=== PATIENT | female | born 1995 | race Caucasian/White ===

== ENCOUNTER 2021-07-28 15:22 | Emergency (ER) | payer OTHER, SELFPAY ==
[2021-07-28 15:32] VITALS: BP 122/85; PULSE 118; RESP 16; TEMP 37.3; O2SAT 99
--- NOTE | 2021-07-28 15:32 | ED.URI ---
HPI - URI/Sore Throat General Chief Complaint: Upper Respiratory Infection Stated Complaint: Sore throat Time Seen by Provider: 07/28/21 15:32 Source: patient and RN notes reviewed History of Present Illness HPI Narrative: Patient is a 25-year-old female who presents the urgent care with complaints of sore throat, fever and body aches since last night. Patient states that she has taken Tylenol for her symptoms. States that she feels like her throat is swollen . Patient has had 1 COVID-vaccine. Patient states that she was exposed to COVID on July 19. Denies of any other upper respiratory complaints. No acute distress noted. Patient aware the plan of care. Some parts of this dictation were generated by voice recognition software and may contain typographical and/or grammatical inaccuracies. Related Data Home Medications Medication Instructions Recorded Confirmed risankizumab-rzaa [Skyrizi] 150 mg SUBCUT ONCE 07/28/21 07/28/21 Allergies Allergy/AdvReac Type Severity Reaction Status Date / Time Latex, Natural Rubber Allergy Itching Verified 07/28/21 15:31 Review of Systems Review of Systems: CONSTITUTIONAL: Reports a fever EYES: Denies visual changes, redness, or discharge. ENT: Denies rhinorrhea, congestion, otalgia. Reports of sore throat CARDIOVASCULAR: Denies chest pain, palpitations, or edema. RESPIRATORY: Denies cough or dyspnea. GASTROINTESTINAL: Denies abdominal pain, nausea, vomiting, or diarrhea. GENITOURINARY: Denies dysuria or hematuria. SKIN: Denies rash or itching. MUSCULOSKELETAL: Denies back pain, joint pain. Reports body aches NEUROLOGIC: Denies headache, numbness, or weakness. All other systems reviewed are negative, except as documented in HPI. PMFSH Comments At the time of my signature, I reviewed and agree with the nursing past medical, surgical, social, and family history. There is no relevant family history pertinent to the patient complaint. Exam Narrative: GENERAL: This is a well-nourished, well-developed patient, in no apparent distress. HEAD: normocephalic, atraumatic. EYES: PERRL. Sclera clear/white. Vision is grossly intact. EARS: External ears normal, auditory canals clear and without drainage, TMs normal without perforation. Hearing grossly intact. NOSE: External nose normal with no obvious nasal discharge, nares without redness, no rhinorrhea. THROAT: Mucous membranes moist, posterior pharynx clear. NECK: Neck supple, non-tender without lymphadenopathy, masses or thyromegaly. CARDIOVASCULAR: Regular rate and rhythm without murmurs, gallops, or rubs. RESPIRATORY: Clear to auscultation. Breath sounds equal bilaterally. No wheezes, rales, or rhonchi. GASTROINTESTINAL: Abdomen soft, non-tender, nondistended. Bowel sounds are active. No hepato-splenomegaly, or palpable masses. No guarding. SKIN: warm, intact with no suspicious lesions or rash, good texture and turgor. NEURO: awake, alert, and oriented to person, place and time. There were no obvious focal neurologic abnormalities. EXTREMITIES: No clubbing, cyanosis, or edema. No joint tenderness, effusion, or edema noted. No calf tenderness. Negative Homans sign bilaterally. BACK: Nontender without deformity or crepitance. No flank tenderness. Course Course Level of Care: Express Care Visit Vital Signs Vital signs: Vital Signs Temperature 99.1 F 07/28/21 15:32 Pulse Rate 118 H 07/28/21 15:32 Respiratory Rate 16 07/28/21 15:32 Blood Pressure 122/85 07/28/21 15:32 Pulse Oximetry 99 07/28/21 15:32 Temperature 99.1 F 07/28/21 15:32 Pulse Rate 118 H 07/28/21 15:32 Respiratory Rate 16 07/28/21 15:32 Blood Pressure 122/85 07/28/21 15:32 Pulse Oximetry 99 07/28/21 15:32 Reviewed MDM - URI/Sore Throat MDM Narrative Medical decision making narrative: Reviewed lab results with the patient. She is aware that her strep swab was negative. Educated patient on culture and we will call within 72 hours of cu
== END 2021-07-28 15:59 | disposition home or self-care (01) ==
PROVIDERS: Emergency Provider Nurse Practitioner Family
DX: J02.9 Acute pharyngitis, unspecified (principal); L40.9 Psoriasis, unspecified
CPT/HCPCS: 87081; 87880; 99213; G0463

== ENCOUNTER 2022-06-07 17:51 | Emergency (ER) | payer OTHER, SELFPAY ==
--- NOTE | ~2022-06-07 | CT_ITS ---
EXAMINATION: CT abdomen pelvis w con INDICATION: Left lower quadrant pain TECHNIQUE: Computed tomographic images of the abdomen and pelvis were obtained after the administrati on of 100 cc of Omnipaque 350 intravenous contrast. The dose-length product (DLP) was 267.23 mGy-cm. Automated exposure control and iterative reconstruction technique were employed. COMPARISON: None available FINDINGS: Minimal dependent atelectasis is present in the lung bases. The heart size is normal. The l iver, spleen, pancreas, gallbladder, and adrenal glands are normal. Hypoattenuating lesions in the ki dneys, measuring up to 4 mm on the right, are too small to characterize but likely represent cysts. N o pathologically enlarged abdominal or pelvic lymph nodes are identified. There is no free intraperit shook gas or evidence of bowel obstruction. There is an enhancing corpus luteum of the left ovary. IMPRESSION: 1. No CT correlate for the patient's symptoms. Reviewed, dictated and finalized at location F. [facility]
[2022-06-07 17:52] VITALS: BP 130/81; PULSE 93; RESP 18; TEMP 36.1; O2SAT 100
[2022-06-07 18:11] LABS: Basophils Percent Auto 0.5 % (0.2-1.2); Eosinophils Percent Auto 0.4 % (0-4.4); Hematocrit 41.8 % (37.0-47.0); Hemoglobin 14.7 g/dL (12.0-15.0); Immature Granulocyte Absolute 0.02 K/mm3 (0.00-0.031); Immature Granulocyte Percent A 0.2 % (0-0.5); Lymphocytes Absolute Auto 2.85 K/mm3 (0.9-3.2); Lymphocytes Percent Auto 33.3 % (18.3-44.2); Mean Corpuscular HGB Conc 35.2 g/dl (32-36); Mean Corpuscular Hemoglobin 35.2 pg (26-34); Mean Platelet Volume 9.6 fl (7.4-10.4); Monocytes Absolute Auto 0.4 K/mm3 (0.1-0.6); Monocytes Percent Auto 4.8 % (2.6-8.5); Neutrophils Absolute Auto 5.2 K/mm3 (1.3-6.7); Neutrophils Percent Auto 60.8 % (45.5-73.1); Platelet Count Result 300 k/mm3 (150-375); Red Blood Count 4.18 M/mm3 (4.2-5.4); White Blood Count 8.6 K/mm3 (4.5-10.0)
[2022-06-07 18:19] LABS: Alanine Aminotransferase 38 U/L (6-35); Albumin Level 4.7 g/dL (3.5-5.1); Alkaline Phosphatase 75 U/L (38-126); Anion Gap 17 mmol/L (8-16); Aspartate Amino Transferase 56 U/L (14-36); Bilirubin,Total 0.6 mg/dL (0.2-1.3); Blood Urea Nitrogen 7 mg/dL (7-17); Calcium 8.8 mg/dL (8.4-10.2); Carbon Dioxide 21 mmol/L (22-30); Chloride 99 mmol/L (98-107); Estimated CRCL calculation 101 ml/min; Estimated Glomerular Filt Rate > 60; Glucose 127 mg/dL (65-110); Lipase 119 U/L (23-300); Potassium 3.5 mmol/L (3.4-5.0); Sodium 137 mmol/L (137-145)
[2022-06-07 18:20] LABS: Appearance Urine Clear (Clear); Bilirubin Urine Negative (Negative); Blood Urine Negative (Negative); Glucose Urine UA Negative (Negative); Ketones Urine Negative (Negative); Leukocyte Esterase Ur Negative LEU/UL (Negative); Nitrate Urine Negative (Negative); Protein Urine Negative (Negative); Urobilinogen Urine 0.2 mg/dL (<2.0)
[2022-06-07 18:25] LABS: Add Urine Microscopic? NO; Color Urine Light Yellow (Yellow)
[2022-06-07 20:45] VITALS: BP 127/90; O2SAT 100
--- NOTE | 2022-06-07 20:54 | ED.ABDPAIN ---
HPI - Abdominal Pain General Chief Complaint: Abdominal Pain Stated Complaint: abd pain Time Seen by Provider: 06/07/22 20:45 History of Present Illness HPI narrative: Patient is a 26-year-old female referred here from urgent care for evaluation of left lower quadrant abdominal pain. Patient states the pain is described as a fullness , and states that she feels swollen in that area. Additionally notes intermittent nausea and vomiting over the past several days. Denies any changes to her stools, fevers. History of appendectomy. Last menstrual cycle was 5 weeks ago. She is sexually active with men and is not on control. No abnormal vaginal discharge. Related Data Home Medications Medication Instructions Recorded Confirmed risankizumab-rzaa 150 mg/mL 150 mg subcut ONCE 07/28/21 07/28/21 subcutaneous pen injector (Skyrizi) Allergies Allergy/AdvReac Type Severity Reaction Status Date / Time Latex, Natural Rubber Allergy Itching Verified 06/07/22 20:45 Review of Systems Review of Systems: Gen: Denies fevers or chills Eyes: Denies eye pain or visual change ENT: Denies congestion Respiratory: Denies shortness of breath or cough CV: Denies chest pain or palpitations GI: Reports abdominal pain, nausea and vomiting. Denies diarrhea denies burning, urgency, frequency or hematuria Musculoskeletal: Denies back pain or muscle pain Neuro: Denies numbness, tingling, weakness or focal weakness Skin: Denies rash Except as documented, all other systems reviewed and negative Exam Narrative: APPEARANCE: Well appearing, no pain in distress, well-nourished. Head: Normocephalic and atraumatic. EYES: PERRLA/EOMI, conjunctivae clear NOSE: No nasal drainage EARS: External ear normal in appearance THROAT: Oropharynx is clear. Mucous membranes are moist. NECK: Supple. No adenopathy, no masses. RESPIRATORY: Airway patent, respirations nonlabored. Clear to auscultation bilaterally, no rales, rhonchi, wheezing. CARDIOVASCULAR: Regular rate and rhythm without murmurs, rubs, or gallops. ABDOMINAL: Tender to palpation in the left groin. No fullness detected. Normoactive bowel sounds. Soft, nondistended. No rebound tenderness or guarding. MUSCULOSKELETAL: Extremities are warm and well-perfused. Moves all extremities well. No edema. NEURO: Normal speech. No focal neurologic deficits. SKIN: Skin is warm and dry. No rashes. PSYCHIATRIC: Normal affect/mood.. Course Vital Signs Vital signs: Vital Signs Temperature 97.0 F L 06/07/22 17:52 Pulse Rate 93 06/07/22 17:52 Respiratory Rate 18 06/07/22 17:52 Blood Pressure 130/81 06/07/22 17:52 Pulse Oximetry 100 06/07/22 17:52 Oxygen Delivery Room Air 06/07/22 17:52 Temperature 97.0 F L 06/07/22 17:52 Pulse Rate 81 06/07/22 22:42 Respiratory Rate 18 06/07/22 22:42 Blood Pressure 154/89 H 06/07/22 22:42 Pulse Oximetry 100 06/07/22 22:42 Oxygen Delivery Room Air 06/07/22 17:52 MDM - Abdominal Pain MDM Narrative Medical decision making narrative: 26-year-old female here for evaluation of left lower quadrant abdominal pain and fullness . Her vital signs are normal and she is slightly tender in that region. No fullness or hernia palpated. Patient's basic labs are unremarkable, she does have an anion gap of 17 and bicarb of 21, but her glucose is normal and she has no ketones in the urine suggest DKA. Her lactic is negative. Likely mild starvation ketosis, she was given fluids and Toradol in the ED with improvement and resolution of her symptoms. Her CT abdomen pelvis is unremarkable. Unclear etiology of patient's symptoms, but she will be discharged home to follow-up with primary care provider and given return precautions. Lab Data Result diagrams: 06/07/22 18:01 06/07/22 18:01 Labs: Lab Results 06/07/22 06/07/22 06/07/22 Range/Units 18:01 18:01 18:08 WBC 8.6 (4.5-10.0) K/mm3 RBC 4.18 L (4.2
--- NOTE | 2022-06-07 21:17 | PC.NURSE ---
Pt in CT
[2022-06-07 21:24] VITALS: BP 120/103; RESP 16; O2SAT 100
[2022-06-07] MEDS: ONDANSETRON INJ 4 MG/2 ML VIAL IV PUSH (21:25)
[2022-06-07] MEDS: SODIUM CHLORIDE 0.9% IV 1,000 ML 999 ML IV CONT (21:25)
[2022-06-07 21:27] LABS: Lactic Acid Reflex 0.9 mmol/L (0.7-2.0)
[2022-06-07 21:31] VITALS: BP 126/93; O2SAT 100
[2022-06-07 21:46] VITALS: BP 125/90; RESP 18; O2SAT 99
[2022-06-07] MEDS: KETOROLAC 15 MG/ML VIAL (*BKC) IV PUSH (21:55)
[2022-06-07 22:42] VITALS: BP 154/89; PULSE 81; RESP 18; O2SAT 100
== END 2022-06-07 22:44 | disposition home or self-care (01) ==
PROVIDERS: Emergency Medicine; Physician Assistant; Emergency Provider Emergency Medicine
DX: R10.32 Left lower quadrant pain (principal)
CPT/HCPCS: 36415; 74177; 80053; 81003; 81025; 83605; 83690; 85025; 96361; 96374; 96375; 99284; J1885; J2405; J7030; Q9967

== ENCOUNTER 2023-01-26 11:29 | Observation (INO) | payer OTHER, SELFPAY ==
[2023-01-26 11:51] VITALS: BP 122/79; PULSE 105
[2023-01-26 12:01] VITALS: BP 126/71; PULSE 97
[2023-01-26 12:16] VITALS: BP 116/76; PULSE 97
[2023-01-26 12:31] VITALS: BP 125/71; PULSE 88
[2023-01-26 12:46] VITALS: BP 128/76; PULSE 93
[2023-01-26 13:10] VITALS: BMI 33.5
--- NOTE | 2023-01-26 13:11 | LDADM ---
This patient, Aby Guerrero, was admitted to Labor/Delivery/Recovery 104 on 01/26/23 at 11:29. Plans for labor, pain management and were discussed with patient. Patient/family oriented to hospital policies and general routines including ID bracelet, bed and alarms, visiting hours, pain management, procedures, bathroom and other care routines, personal items, smoking policy, room service/diet and guest tray routines, security routines, and visiting hours. Patient/Family are encouraged to report perceived risks to care and to ask questions if they do not understand what they are told or what they should do. See OBIX for further documentation.
--- NOTE | 2023-01-26 13:22 | PC.NURSE ---
Patient admitted for observation with complaints of leaking fluid and contractions. ROM+ negative. heart tones are reassuring (Category I) and patient had occasional contractions. Patient's cervical exam was 1.5/50/-2 (same as cervical exam in office on 01/24/23). Patient made no cervical change during visit and verbal orders were received by MD for discharge. Patient agrees with plan of care and has no questions at this time.
--- NOTE | 2023-02-18 23:15 | PM.OBTRLD ---
OB - Triage/Final Diagnosis Visit Information Comments/Additional reasons for admission: I have assessed the risk for this patient, Aby Guerrero, and determined that she would benefit from observation care. Final Diagnosis (1) Amniotic fluid leaking: Code(s): O42.90 - Premature rupture of membranes, unspecified as to length of time between rupture and onset of labor, unspecified weeks of gestation Status: Acute
== END 2023-01-26 13:21 | disposition home or self-care (01) ==
PROVIDERS: Admitting Provider Obstetrics & Gynecology; Visit Provider Obstetrics & Gynecology
DX: O42.913 Preterm premature rupture of membranes, unspecified as to length of time between rupture and onset of labor, third trimester (principal); Z3A.36 36 weeks gestation of pregnancy
CPT/HCPCS: 84112; G0378; G0379

== ENCOUNTER 2023-01-31 16:16 | Outpatient (RCR) | payer OTHER, SELFPAY ==
[2023-01-17 15:30] VITALS: BP 130/86; PULSE 104
[2023-01-17 16:36] VITALS: BP 130/86; PULSE 89
[2023-01-31 16:41] VITALS: PULSE 100
== END 2023-03-05 12:46 | disposition home or self-care (01) ==
LOC: ANHOBOP 16:16
PROVIDERS: Visit Provider Obstetrics & Gynecology
DX: O24.419 Gestational diabetes mellitus in pregnancy, unspecified control (principal); O36.8330 Maternal care for abnormalities of the fetal heart rate or rhythm, third trimester, not applicable or unspecified; Z3A.34 34 weeks gestation of pregnancy
CPT/HCPCS: 59025

== ENCOUNTER 2023-02-16 04:59 | Inpatient (IN) | payer OTHER, SELFPAY ==
[2023-02-16] VITALS (113 sets, daily range): BP systolic 86–174; BP diastolic 50–145; PULSE 46–156; RESP 16–18; TEMP 36.5–36.8; O2SAT 93–100; BMI 34.9
--- NOTE | 2023-02-16 05:22 | LDADM ---
This patient, Aby Guerrero, was admitted to Labor/Delivery/Recovery 107 on 02/16/23 at 04:59. Plans for labor, pain management and were discussed with patient. Patient/family oriented to hospital policies and general routines including ID bracelet, bed and alarms, visiting hours, pain management, procedures, bathroom and other care routines, personal items, smoking policy, room service/diet and guest tray routines, security routines, and visiting hours. Patient/Family are encouraged to report perceived risks to care and to ask questions if they do not understand what they are told or what they should do. See OBIX for further documentation.
[2023-02-16 05:48] LABS: Basophils Percent Auto 0.2 % (0.2-1.2); Eosinophils Absolute Auto 0.1 K/mm3 (0-0.3); Eosinophils Percent Auto 1.4 % (0-4.4); Hematocrit 32.2 % (37.0-47.0); Hemoglobin 10.2 g/dL (12.0-15.0); Immature Granulocyte Absolute 0.03 K/mm3 (0.00-0.031); Immature Granulocyte Percent A 0.4 % (0-0.5); Lymphocytes Absolute Auto 2.34 K/mm3 (0.9-3.2); Lymphocytes Percent Auto 29.1 % (18.3-44.2); Mean Corpuscular HGB Conc 31.7 g/dl (32-36); Mean Corpuscular Hemoglobin 29.9 pg (26-34); Mean Corpuscular Volume 94.4 fl (80-100); Monocytes Absolute Auto 0.6 K/mm3 (0.1-0.6); Monocytes Percent Auto 7.1 % (2.6-8.5); Neutrophils Percent Auto 61.8 % (45.5-73.1); Platelet Count Result 320 k/mm3 (150-375); Red Blood Count 3.41 M/mm3 (4.2-5.4); Red Cell Distribution Width 13.3 % (11.5-14.5)
[2023-02-16] MEDS: OXYTOCIN 30 UNITS/NS 500 ML 30 UNITS/500 ML BAG 6 UNITS IV CONT (05:48)
[2023-02-16] MEDS: LACTATED RINGERS 1,000 ML 125 ML IV CONT ×2 (05:48→08:56)
[2023-02-16 06:05] LABS: Amphetamine Screen Urine Negative (Negative); Barbiturate Screen Urine Negative (Negative); Benzodiazepines Screen Urine Negative (Negative); Cannabinoid Screen Urine Negative (Negative); Cocaine Screen Urine Negative (Negative); Methadone Screen Urine Negative (Negative); Opiate Screen Urine Negative (Negative); Phencyclidine Screen Urine Negative (Negative)
--- NOTE | 2023-02-16 06:22 | WPDANESEPPF ---
Anes - Initial Pre Proc Eval Procedure: Labor epidural Date/Time: 02/16/23 06:22 Surgeon: Twin Guzmán MD Pre Op Diagnosis: Labor pain Pre Op Diagnosis: Induction of Labor Patient Data Age: 27 Gender: F Height: 1.6 m Weight: 89.54 kg Last Vital Signs Pulse 87 02/16/23 05:20 BP 118/73 02/16/23 05:20 O2 Del Method Room Air 02/16/23 05:21 Allergies Allergy/AdvReac Type Severity Reaction Status Date / Time Latex, Natural Rubber Allergy Itching Verified 02/10/23 13:38 Home Medications Medication Instructions Recorded Confirmed Type blood sugar diagnostic (OneTouch 01/26/23 01/26/23 History Ultra Test strips) blood-glucose meter (OneTouch 01/26/23 01/26/23 History Ultra2 Meter) lancets 33 gauge (OneTouch Delica 01/26/23 01/26/23 History Plus Lancet) prenat.vits,sangita,nes-ssrr-frnbm 1 tablet 02/10/23 History Laboratory Tests 02/16/23 05:41 WBC 8.0 K/mm3 (4.5-10.0) RBC 3.41 L M/mm3 (4.2-5.4) Hgb 10.2 L D g/dL (12.0-15.0) Hct 32.2 L % (37.0-47.0) MCV 94.4 fl (80-100) MCH 29.9 pg (26-34) MCHC 31.7 L g/dl (32-36) RDW 13.3 % (11.5-14.5) Plt Count 320 k/mm3 (150-375) MPV 10.0 fl (7.4-10.4) Immature Gran % (Auto) 0.4 % (0-0.5) Neut % (Auto) 61.8 % (45.5-73.1) Lymph % (Auto) 29.1 % (18.3-44.2) Tripp % (Auto) 7.1 % (2.6-8.5) Eos % (Auto) 1.4 % (0-4.4) Baso % (Auto) 0.2 % (0.2-1.2) Lymph # (Auto) 2.34 K/mm3 (0.9-3.2) Tripp # (Auto) 0.6 K/mm3 (0.1-0.6) Eos # (Auto) 0.1 K/mm3 (0-0.3) Baso # (Auto) 0.0 K/mm3 (0.0-0.1) Abs Immat Gran (auto) 0.03 K/mm3 (0.00-0.031) Absolute Neuts (auto) 5.0 K/mm3 (1.3-6.7) Absolute Nucleated RBC 0.0 K/mm3 (0.0-0.012) Nucleated RBC % 0.0 % (0.0-0.2) Urine Opiates Screen Negative (Negative) Urine Methadone Screen Negative (Negative) Ur Barbiturates Screen Negative (Negative) Ur Phencyclidine Scrn Negative (Negative) Ur Amphetamine Screen Negative (Negative) U Benzodiazepines Scrn Negative (Negative) Urine Cocaine Screen Negative (Negative) U Cannabinoids Screen Negative (Negative) RPR Pending Patient hx anesthesia problems: none Family hx anesthesia problems: none Results Review: All pre-operative results and documents have been reviewed as part of the pre-operative evaluation. [facility] Family History Family History Mother Cervical cancer Grandparent Diabetes mellitus Social History Social History Smoking status: Former smoker Tobacco type: cigarettes Substance use: never Lack of Transportation: No Lack of Food: Never True Current Housing: I Have Housing Concerned About Future Housing: No Difficulty Paying Gas/Electric Bills: No Difficulty Paying for Meds: No Currently Unemployed: No Education: High School Diploma/GED Difficulty w/ Childcare or Family Care: No Spiritual care concerns: No Anes - Eval Final PreProcedure Day of Procedure 02/16/23 06:22 ASA classification: II Results Review: All pre-operative results and documents have been reviewed as part of the pre-operative evaluation. Informed Consent: The patient's anesthetic plan and its attendant risks and benefits were discussed with the patient/family/POA. Questions were solicited and answers provided to the satisfaction of the patient/family/POA.
[2023-02-16 06:55] LABS: Glucose Point of Care 80 mg/dl (65-105)
--- NOTE | 2023-02-16 07:54 | WPDHPUPDATE1 ---
History and Physical Update Update Date/Time: 02/16/23 07:54 27-year-old 1 at term who presents for elective induction. She is 3 cm, 50%, -2 reassuring heart tones. Ruptured membranes artificially with clear fluid. Proceed with Pitocin and expectant management. History and Physical has been reviewed, including an updated exam of the patient. There are NO changes in the patient's condition. Risks, benefits, and alternatives have been discussed and questions answered. Patient agrees to proceed with procedure.
[2023-02-16 09:59] LABS: Glucose Point of Care 88 mg/dl (65-105)
[2023-02-16 12:19] LABS: Glucose Point of Care 85 mg/dl (65-105)
--- NOTE | 2023-02-16 13:10 | PM.OBPRVD ---
OB - Delivery Note Procedure Delivery date: 02/16/23 Procedure: Induction method: AROM and Per Pitocin Protocol Delivery monitor: External FHT and Internal Uterine Route of delivery: Laceration Description: Periurethral Delivery repair: vicryl Quantitative Blood Loss (ml): 225 [place] Baby Date of : 02/16/23 Time of : 12:58 Weeks of gestation at delivery: 39 presentation: vertex Placenta delivery description: Spontaneous score one minute: 9 score five minutes: 9
[2023-02-16] MEDS: miSOPROStol 200 MCG TABLET 1000 MCG RECTAL (13:17)
[2023-02-16] MEDS: OXYTOCIN 30 UNITS/NS 500 ML 30 UNITS/500 ML BAG 125 UNITS IV CONT (13:32)
--- NOTE | 2023-02-16 14:27 | PC.NURSE ---
[id number] Introductions were made. Mother works well with her infant and is demonstrating [id number]. Encouraged understanding of the benefits of skin to skin (demonstrating unwrapping and placing upright on her chest), stimulating with massage touch, changing positions to encourage wakefulness, how to watch for early feeding cues and responsive feeding. With mother in a laid-back position infant was allowed time to explore mothers chest making crawling efforts to the breast. Mother was educated on the art of hand expression to encourage milk production and to finger feed drops to her when able to express colostrum. It was demonstrated how supporting the breast to facilitate a deep latch, asymmetrical latch (off-center), leading with the chin with a big, open, wide gape and body close to mother. After some time infant was repositioned, then latched optimally to the left breast in football position. Education given to mother of how to visualize suck/swallow and effective with good rocking jaw motion. was able to maintain latch without discomfort to mother for 3-5 minutes. Nipple care reviewed with optimal latch and good positioning. Reviewed good handwashing when or touching the breast/nipples to prevent infection. Resource of the [employer] was given to mother. Mother voiced understanding of skin to skin, stimulating with massage touch, responsive feedings, hand expressed colostrum, talking to infant to encourage , to call if infant does not latch, or if there is discomfort with . Parents voiced understanding of information, demonstrated learning and will call if there is a request for assistance. Reported to the Nursery RN.
--- NOTE | 2023-02-16 15:45 | OBPPTRN ---
Patient transferred to post room #283 via wheelchair. Support person present. Oriented to unit, room, information board, rooming in, admission packet and security measures. Patient verbalizes understanding.
[2023-02-16 17:06] LABS: Rapid Plasma Reagin Non-Reactive (NonReactive)
[2023-02-16] MEDS: ACETAMINOPHEN 325 MG TABLET 650 MG PO (17:56)
[2023-02-17 04:00] VITALS: BP 110/75; PULSE 89; RESP 18; TEMP 36.5; O2SAT 100
[2023-02-17] MEDS: ACETAMINOPHEN 325 MG TABLET 650 MG PO ×3 (04:31→17:16)
[2023-02-17 05:06] LABS: Hematocrit 30.1 % (37.0-47.0); Hemoglobin 9.7 g/dL (12.0-15.0)
--- NOTE | 2023-02-17 07:52 | WPDANLDPN2 ---
Anes-Prog Note L&D Date/Time: 02/17/23 07:52 Comfortable throughout: labor and delivery Neuraxial method: epidural Epidural/Spinal procedure site: clean & non-tender Neuro status: Neuro function grossly intact. Cardiovascular status: normal Respiratory status: normal Airway patency: baseline Mental status: baseline Post-Op hydration status: normal Vital Signs: Last Vital Signs Temp 97.7 F 02/17/23 04:00 Pulse 89 02/17/23 04:00 Resp 18 02/17/23 04:00 BP 110/75 02/17/23 04:00 Pulse Ox 100 02/17/23 04:00 O2 Del Method Room Air 02/16/23 15:45 Pain score (VAS): 0 I/O: Intake & Output 02/16/23 02/16/23 02/17/23 15:59 23:59 07:59 Intake Total 1000 240 Output Total 425 Balance 575 240 Post-procedural complaints: none Patient feedback: Patient satisfied with anesthetic care.
--- NOTE | 2023-02-17 08:18 | PM.OBPNVD ---
OB - PN: Subj Subjective Date/time seen: 02/17/23 08:18 Patient comments: no complaints, pain well controlled, incisional pain, tolerating diet and flatus present OB - PN: Obj Data Labs 02/17/23 04:26 Labs: Laboratory Results - last 24 hr 02/16/23 02/16/23 02/16/23 05:41 09:55 12:15 Hgb Hct POC Capillary Glucose 88 85 RPR Non-reactive Blood Type A Positive Antibody Screen Negative 02/17/23 04:26 Hgb 9.7 L Hct 30.1 L POC Capillary Glucose RPR Blood Type Antibody Screen OB - PN A/P Plan day: 1 Plan: routine care Comments: No problems, routine care Time Spent With Patient Time: Total time spent is greater than 50% in coordination of care (as documented) at patient's floor/unit and/or counseling patient: Exam Const: General: comfortable, no acute distress and alert Resp: Effort & Inspection: normal respiratory effort Auscultation: no crackles, no rales and no rhonchi Cardio: Rate: regular rate Heart sounds: no click, no murmurs and no rubs GI: Inspection: non-distended GI Palp: No Tenderness to palpation present (GI) Auscultation: normal bowel sounds Other: Incision - CDI Extrem: General: normal to inspection, no pedal edema and no calf tenderness
--- NOTE | 2023-02-17 08:19 | PM.OBDSVD ---
DS: Admitting Diagnosis Discharge Date February 17, 2023 Admitting Diagnosis term DS: Discharge Diagnosis Discharge Diagnosis (1) Term delivered: Code(s): O80 - Encounter for full-term uncomplicated delivery Status: Acute OB - DS: Summary OB Procedures : None OB Procedures Intrapartum: Spontaneous Vag Delivery OB Procedures: : None Time Spent with Patient Time attestation: Total time spent providing and/or coordinating discharge services: Exam Const: General: comfortable, no acute distress and alert Resp: Effort & Inspection: normal respiratory effort Auscultation: no crackles, no rales and no rhonchi Cardio: Rate: regular rate Heart sounds: no click, no murmurs and no rubs GI: Inspection: non-distended GI Palp: No Tenderness to palpation present (GI) Auscultation: normal bowel sounds Other: Incision - CDI Extrem: General: normal to inspection, no pedal edema and no calf tenderness DS: Data Data Completed and Pending Labs on day of discharge: Labs from last 24 hours 02/17/23 02/16/23 02/16/23 04:26 12:15 09:55 Hgb 9.7 L Hct 30.1 L POC Capillary Glucose 85 88 RPR Blood Type Antibody Screen 02/16/23 05:41 Hgb Hct POC Capillary Glucose RPR Non-reactive Blood Type A Positive Antibody Screen Negative Discharge Plan Discharge Discharging Clinician: Twin Guzmán Patient Disposition: Home, Self-Care Activity: pelvic rest Diet: regular Patient Instructions: Antibiotic Form Stand Alone Forms: General Discharge Information Follow-up/Referrals: Twin Guzmán MD [Physician] - Discharge Medications: Continued (DME) blood-glucose meter [OneTouch Ultra2 Meter] Misc MISCELLANEOUS (DME) OneTouch Ultra Test Strip MISCELLANEOUS (DME) lancets [OneTouch Delica Plus Lancet] 33 gauge misc MISCELLANEOUS #2 Tablet 1 tablet Date of admission: 02/16/23 04:59 Primary Care Provider: PHYSICIAN,GENERAL INTERNIST AND PHYSICIAN LEADER Admitting Provider: Twin Guzmán Attending physician on admission: Twin Guzmán Condition: Stable
[2023-02-17 09:00] VITALS: BP 106/79; PULSE 71; RESP 16; TEMP 36.9; O2SAT 98
[2023-02-17] MEDS: DOCUSATE SODIUM 100 MG CAPSULE PO ×2 (09:00→17:16)
[2023-02-17] MEDS: MULTIVIT/MIN/PREN/FOL AC/IRON TABLET 1 TAB PO (09:00)
[2023-02-17] MEDS: POLYSACCHARIDE IRON COMPLEX 150 MG CAPSULE PO ×2 (09:00→17:16)
[2023-02-17 20:00] VITALS: BP 97/64; PULSE 90; RESP 18; TEMP 36.8; O2SAT 98
[2023-02-18] MEDS: BENZOCAINE 20% AER SPR (*SP) 56 GM CAN 1 SPRAY TOPICAL (08:15)
[2023-02-18] MEDS: MULTIVIT/MIN/PREN/FOL AC/IRON TABLET 1 TAB PO (08:15)
[2023-02-18] MEDS: POLYSACCHARIDE IRON COMPLEX 150 MG CAPSULE PO (08:15)
[2023-02-18] MEDS: DOCUSATE SODIUM 100 MG CAPSULE PO (08:15)
[2023-02-18] MEDS: WITCH HAZEL 40 PADS 1 PAD TOPICAL (08:15)
[2023-02-19 09:15] VITALS: BP 114/71; PULSE 98; RESP 18; TEMP 36.9; O2SAT 100
== END 2023-02-18 11:30 | disposition home or self-care (01) | DRG 807 ==
LOC: ANHLDR 05:02 → ANHOB2 15:53
PROVIDERS: Admitting Provider Obstetrics & Gynecology; Visit Provider Obstetrics & Gynecology
DX: O24.429 Gestational diabetes mellitus in childbirth, unspecified control (principal); Z37.0 Single live birth; O71.82 Other specified trauma to perineum and vulva; Z3A.39 39 weeks gestation of pregnancy
CPT/HCPCS: 36415; 80307; 82948; 85014; 85018; 85025; 86592; 86850; 86900; 86901; A9270; J2590; J2795; J7120

== ENCOUNTER 2023-12-28 00:01 | Emergency (ER) | payer OTHER, SELFPAY ==
--- NOTE | ~2023-12-28 | CT_ITS ---
CT of the Abdomen and Pelvis: Indication: Abdominal pain Technique: 2.5 mm axial scans were obtained through the abdomen and pelvis following intravenous adm inistration of 100 cc of Omnipaque 350. Dose reduction technique was used on this scan by utilizing a utomated exposure control and iterative reconstruction technique. The dose-length product (DLP) was 6 85.80 mGy-cm. COMPARISON: 06/07/2022 Findings: Scans through the lung bases are unremarkable. The liver, spleen, pancreas, gallbladder, adrenals and kidneys are within normal limits. No evidence of aortic aneurysm. No lymphadenopathy. No bowel obstruction or bowel wall thickening. There is no evidence to suggest acute appendicitis. Images through the pelvis were performed. Urinary bladder unremarkable. 3.3 cm exophytic right-sided fibroid versus right ovarian mass present. No ascites. Impression: 3.3 cm exophytic right-sided fibroid versus right ovarian mass. Pelvic ultrasound should be considere d to further evaluate. Reviewed, dictated and finalized at [facility]. Impression: 3.3 cm exophytic right-sided fibroid versus right ovarian mass. Pelvic ultrasou nd should be considered to further evaluate.
[2023-12-28 00:08] VITALS: BP 146/98; PULSE 103; RESP 20; TEMP 36.4; O2SAT 100
[2023-12-28 01:01] VITALS: BP 121/86; PULSE 85; RESP 18; TEMP 36.4; O2SAT 99
[2023-12-28] MEDS: SODIUM CHLORIDE 0.9% IV 1,000 ML 999 ML IV CONT (01:17)
[2023-12-28] MEDS: ONDANSETRON INJ 4 MG/2 ML VIAL IV PUSH (01:17)
[2023-12-28 01:33] LABS: Basophils Percent Auto 0.5 % (0.2-1.2); Eosinophils Absolute Auto 0.1 K/mm3 (0-0.3); Eosinophils Percent Auto 1.8 % (0-4.4); Hematocrit 37.8 % (37.0-47.0); Hemoglobin 12.4 g/dL (12.0-15.0); Immature Granulocyte Absolute 0.01 K/mm3 (0.00-0.031); Immature Granulocyte Percent A 0.2 % (0-0.5); Lymphocytes Absolute Auto 3.17 K/mm3 (0.9-3.2); Mean Corpuscular HGB Conc 32.8 g/dl (32-36); Mean Corpuscular Hemoglobin 33.3 pg (26-34); Mean Corpuscular Volume 101.6 fl (80-100); Mean Platelet Volume 10.4 fl (7.4-10.4); Monocytes Absolute Auto 0.4 K/mm3 (0.1-0.6); Monocytes Percent Auto 6.4 % (2.6-8.5); Neutrophils Absolute Auto 2.5 K/mm3 (1.3-6.7); Neutrophils Percent Auto 40.1 % (45.5-73.1); Platelet Count Result 272 k/mm3 (150-375); Red Blood Count 3.72 M/mm3 (4.2-5.4); Red Cell Distribution Width 13.7 % (11.5-14.5); White Blood Count 6.2 K/mm3 (4.5-10.0)
[2023-12-28 01:42] LABS: Lipase 130 U/L (23-300)
[2023-12-28 01:42] LABS: Influenza A QL RT-PCR Negative (Negative); Influenza B QL RT-PCR Negative (Negative); RSV RNA, RT-PCR Negative (Negative); SARS-CoV-2 RNA PCR Negative (Negative)
[2023-12-28 01:53] LABS: Appearance Urine Cloudy (Clear); Bacteria Urine 2+ /hpf; Bilirubin Urine Negative (Negative); Blood Urine Negative (Negative); Color Urine Yellow (Yellow); Glucose Urine UA Negative (Negative); Ketones Urine Negative (Negative); Leukocyte Esterase Ur 2+ LEU/UL (Negative); Nitrate Urine Negative (Negative); Non Pathogenic Casts 0-2; Protein Urine Negative (Negative); RBC Urine 0-2 /hpf (0-2); Specific Grav Ur 1.013 (1.001-1.035); Squamous Epithelial Cell Urine Moderate /hpf (Few); WBC Urine 21-50 /hpf (0-3); pH Urine 6.5 (5.0-9.0)
[2023-12-28 01:55] LABS: Alanine Aminotransferase 42 U/L (6-35); Albumin Level 3.9 g/dL (3.5-5.1); Alkaline Phosphatase 58 U/L (38-126); Anion Gap 5 mmol/L (4-12); Aspartate Amino Transferase 61 U/L (14-36); Bilirubin,Total 0.4 mg/dL (0.2-1.3); Blood Urea Nitrogen 8 mg/dL (7-17); Calcium 8.9 mg/dL (8.4-10.2); Carbon Dioxide 27 mmol/L (22-30); Chloride 105 mmol/L (98-107); Estimated CRCL calculation 125 ml/min; Estimated Glomerular Filt Rate > 60; Glucose 101 mg/dL (65-110); Magnesium 1.9 mg/dL (1.6-2.3); Potassium 3.5 mmol/L (3.4-5.0); Sodium 137 mmol/L (137-145)
[2023-12-28 01:55] LABS: Add Urine Microscopic? YES
[2023-12-28 02:15] LABS: SPREG INTERNAL CONTROL Positive; Serum Qual hCG Negative
--- NOTE | 2023-12-28 02:39 | ED.ABDPAIN ---
HPI - Abdominal Pain General Chief Complaint: Abdominal Pain Stated Complaint: abd pain Time Seen by Provider: 12/28/23 01:30 History of Present Illness HPI narrative: Patient is a 28-year-old female who presents the emergency department this evening complaining of right upper quadrant abdominal pain. Patient states that she has been having this pain on and off for the past few weeks and states that sometimes it is associated with food and sometimes it appears out of nowhere. Patient also states that she gave approximately 3 weeks ago and that all the women in her family 10 to have gallbladder issues after having a baby. Patient also states that she has been having some nausea, vomiting and diarrhea for the past 5 days. Denies any chest pain or shortness of breath, any fevers or chills at home. No additional symptoms or concerns at this time. Related Data Home Medications Medication Instructions Recorded Confirmed blood sugar diagnostic ([facility] 01/26[facility] 01/26/23 Ultra Test strips) blood-glucose meter ([facility] 01/26/23 01/26/23 Ultra2 Meter) lancets 33 gauge ([employer] 01/26/23 01/26/23 Plus Lancet) prenat.vits,sangita,bzo-qwcy-mooad 1 tablet 02/10/23 Allergies Allergy/AdvReac Type Severity Reaction Status Date / Time Latex, Natural Rubber Allergy Itching Verified 02/10/23 13:38 Review of Systems Review of Systems: All systems are reviewed and are negative unless stated otherwise in the HPI. [facility] Family History Family History Mother Cervical cancer Grandparent Diabetes mellitus Social History Social History Smoking status: Former smoker Tobacco type: cigarettes Substance use: never Lack of Transportation: No Lack of Food: Never True Current Housing: I Have Housing Concerned About Future Housing: No Difficulty Paying Gas/Electric Bills: No Difficulty Paying for Meds: No Currently Unemployed: No Education: High School Diploma/GED Difficulty w/ Childcare or Family Care: No Spiritual care concerns: No Exam Narrative: General: Alert, awake, afebrile, in no acute distress. HEENT: PERRL, no rhinorrhea, no post nasal drip, oropharynx clear. Cardiovascular: Regular rate and rhythm, no murmurs, rubs or gallops, no peripheral edema. Respiratory: Clear to auscultation bilaterally, no tachypnea, no wheezing, no rhonchi, no rubs, no respiratory distress. Abdomen: Soft, nontender, nondistended, no rebound, no guarding, no peritoneal signs. Musculoskeletal: No joint swelling or deformity, normal muscle tone. Skin: No rashes or petechia, no signs of infection. Neurological: Alert and oriented to person, place, and time. Follows all commands. No focal deficits, speech is clear and fluent. Course Vital Signs Vital signs: Vital Signs Temperature 97.5 F L 12/28/23 00:08 Pulse Rate 103 H 12/28/23 00:08 Respiratory Rate 20 12/28/23 00:08 Blood Pressure 146/98 H 12/28/23 00:08 Pulse Oximetry 100 12/28/23 00:08 Oxygen Delivery Room Air 12/28/23 00:08 Temperature 97.6 F 12/28/23 01:01 Pulse Rate 82 12/28/23 05:38 Respiratory Rate 17 12/28/23 05:38 Blood Pressure 126/84 12/28/23 05:38 Pulse Oximetry 97 12/28/23 05:38 Oxygen Delivery Room Air 12/28/23 00:08 MDM - Abdominal Pain MDM Narrative Medical decision making narrative: The patient was evaluated by myself in the emergency department. History is obtained from patient who is an independent historian and physical exam was performed. External medical records were reviewed at this time. IV was established and pertinent tests were ordered. Patient was administered a 1 L IV fluid bolus with normal saline and 4 mg IV Zofran for nausea. Laboratory results obtained revealing mild transaminitis with an AST of 61 and an ALT of 42. Imaging studies obtaine
[2023-12-28 04:14] VITALS: BP 124/80; PULSE 82; RESP 20; O2SAT 97
[2023-12-28 05:38] VITALS: BP 126/84; PULSE 82; RESP 17; O2SAT 97
== END 2023-12-28 06:10 | disposition home or self-care (01) ==
PROVIDERS: Emergency Provider Emergency Medicine
DX: N39.0 Urinary tract infection, site not specified (principal); N83.8 Other noninflammatory disorders of ovary, fallopian tube and broad ligament; R10.11 Right upper quadrant pain; R19.7 Diarrhea, unspecified; Z87.891 Personal history of nicotine dependence; Z20.822 Contact with and (suspected) exposure to COVID-19
CPT/HCPCS: 36415; 74177; 80053; 81001; 81025; 82248; 83690; 83735; 84703; 85025; 87086; 87088; 87637; 96361; 96374; 99284; J2405; J7030; Q9967

== ENCOUNTER 2025-04-15 15:05 | Emergency (ER) | payer OTHER, SELFPAY ==
--- NOTE | ~2025-04-15 | US_ITS ---
EXAMINATION: US OB <=14 wk fetus w TV DATE: 04/15/2025 17:35 INDICATION: Vaginal bleeding. Last menstrual period 02/23/2025 TECHNIQUE: Real-time transabdominal and transvaginal obstetric ultrasound. FINDINGS: No prior studies for comparison. The uterus measures 8.4 x 3.9 x 4.6 cm. No intrauterine is identified. Endometrium measures 5 mm. Myometrium is unremarkable without abnormal mass. There is a complicated cyst with echogenic internal component. This cyst measures 3.7 x 3.7 x 3.5 cm. The left ovary is normal measuring 2.8 x 2 x 1.5 cm. IMPRESSION: 1. No intrauterine identified. Findings are nonspecific in the setting of early and may represent of unknown location. Correlation with follow-up quantitative beta-hCG levels and imaging recommended. 2: Complicated right ovarian cyst measuring 3.7 cm with internal soft tissue component which lacks vascularity. This may represent a hemorrhagic ovarian cyst or resolving corpus luteal cyst. Reviewed, dictated and finalized at location O. IMPRESSION: 1. No intrauterine identified. Findings are nonspecific in the settin g of early and may represent of unknown location. Correlati on with follow-up quantitative beta-hCG levels and imaging recommended. 2: Complicated right ovarian cyst measuring 3.7 cm with internal soft tissue co mponent which lacks vascularity. This may represent a hemorrhagic ovarian cyst or resolving corpus luteal cyst.
[2025-04-15 15:08] VITALS: BP 123/80; PULSE 99; RESP 16; TEMP 36.4; O2SAT 96
--- OUTSIDE RECORDS SUMMARY | 2025-04-15 15:08 | XMS_ITS | Clinical Summary ---
Author Organization [facility] Re[employer] [place] [place] Address [address] [address] Care Team Providers Care Superintendent Laundry Name Role Phone Noris Diaz MD Primary Care Provider Allergies Active Allergy Reactions Criticality Noted Date Comments Amoxicillin Rash Low 03/16/2025 Latex Rash Low 12/14/2019 Medications Ethinyl Estradiol-Nore lgestrom (Xulane) 150-35 mcg/24 hr Patch Weekly PATCH Apply 1 Patch to skin as directed see administration instructions. Active azithromycin (Zithromax Z-Petr) 250 mg tablet Take two pills on day 1, then one pill daily until gone. 6 Tablet 03/16/20 25 Active cetirizine (ZyrTEC) 10 mg tabletIndicati ons:Rash Take 1 Tablet (10 mg) by mouth daily. 90 Tablet 1 03/18/20 25 Active predniSONE (DELTASONE) 20 mg tabletIndicati ons:Rash Take 2 Tablets (40 mg) by mouth daily for 5 days. 10 Tablet 03/18/20 25 025 Active Problems Problem Noted Date Diagnosed Date History of gestational diabetes 05/25/2023 Encounters Date Type Department Care Team Description 04/02/2025 Results Follow-Up [facility] [employer] [place] [address] [place] [address] Noris Diaz MD COMPREHENSIVE METABOLIC PANEL, CBC WITH DIFFERENTIAL, LIPID PANEL, Additional followed-up results: 2 04/02/2025 Results Follow-Up [facility] [employer] [place] [address] [place] [address] Jillian Crow, ANP SEDIMENTATION RATE 04/01/2025 1:20 PM CDT Office Visit [facility] [place] [address] [place] [address] Rash; Screening for condition; Hx gestational diabetes 03/30/2025 Telephone [facility] [place] [address] [place] [address] Jillian Crow, SHA Rash 03/18/2025 2:00 PM CDT Office Visit [facility] [place] [address] [place] [address] Noris Diaz MD Rash (Primary Dx) 03/16/2025 11:20 AM CDT Procedure visit [facility] [place] [address] [place] [address] Issue of repeat prescription for medication (Primary Dx) 03/16/2025 Telephone [facility] [place] [address] [place] [address] Jillian Crow, SHA Erroneous encounter-disregard 03/12/2025 3:00 PM CDT Office Visit [facility] [place] [address] [place] [address] Noris Diaz MD Acute streptococcal pharyngitis (Primary Dx); Sore throat; Screening for condition; Hx gestational diabetes from Last 3 Months Family History Medical History Relation Name Comments Other Father car accident Psoriasis Maternal Grandfather head in [facility] Dementia Paternal Grandmother Psoriasis Sister Relation Name Status Comments Brother Alive Daughter Alive Father Maternal Grandfather Maternal Grandmother Alive Mother Alive Paternal Grandfather Alive Paternal Grandmother Alive Sister Alive Social History Tobacco Use Types Packs/Day Years Used Date Smoking Tobacco: Some Days Cigarettes Smokeless Tobacco: Never Alcohol Use Standard Drinks/Week Comments Not Currently 0 (1 standard drink = 0.6 oz pur e alcohol) Comments No Sex and Gender Information Value Date Recorded Sex Assigned at Not on file Legal Sex Female 7:21 AM CDT Gender Identity Not on file Sexual Orientation Not on file Last Filed Vital Signs Vital Sign Reading Time Taken Comments Blood Pressure 124/72 04/01/2025 1:31 PM CDT Pulse 95 03/18/2025 1:58 PM CDT Temperature 37.1 C (98.8 F) 03/18/2025 1:58 PM CDT Respiratory Rate 18 03/18/2025 1:58 PM CDT Oxygen Saturation 97% 03/18/2025 1:58 PM CDT Inhaled Oxygen Concentration - - Weight 88 kg (194 lb) 04/01/2025 1:31 PM CDT Height 160 cm (5' 3) 04/01/2025 1:31 PM CDT Body Mass Index 34.37 04/01/2025 1:31 PM CDT Plan of Treatment Health Maintenance Due Date Last Done Comments HEPATITIS B VACCINES (1 of 3 - 19+ 3-dose series) 09/21 CERVICAL CANCER SCREENING 2017 HPV/Cotest (21-29) 2017 PAP SMEAR 2017 HPV VACCINES (1 - 3-dose SCDM series) 10/15/2023 INFLUENZA VACCINE (#1) 2025 DTAP/TDAP/TD VACCINES (2 - Td or Tdap) 12/13/2029 Procedures Procedure Name Priority Date/Time Associated Diagnosis Comments HEMOGLOBIN A1C Routine 04/01/2025 1:17 PM CDT Hx gestational diabetes TSH Routine 04/01/2025 1:17 PM CDT Screening for condition LIPID PANEL Routine 04/01/2025 1:17 PM CDT Screening for condition CBC WITH DIFFERENTIAL Routine 04/01/2025 1:17 PM CDT Screening for condition COMPREHENSIVE METABOLIC PANEL Routine 04/01/2025 1:17 PM CDT Screening for condition SEDIMENTATION RATE Routine 04/01/2025 1: 17 PM CDT Rash POC INFLUENZA A/B AND COVID-19 ANTIGENS Routine 03/12/2025 3:00 PM CDT Sore throat POC RAPID STREP A ANTIGEN Routine 03/12/2025 3:00 PM CDT Sore throat from Last 3 Months Results * (ABNORMAL) CBC WITH DIFFERENTIAL (04/01/2025 1:17 PM CDT) Pathologist [facility] WBC 5.8 3.8 - 10.8 Thousand/ uL [facility] RBC 4.20 3.80 - 5.10 Million/u L [facility] HEMOGLOBIN 14.1 11.7 - 15.5 g/dL [facility] HEMATOCRIT 43.9 35.0 - 45.0 % [facility] MCV 104.5(H) 80.0 - 100.0 fL [facility] MCH 33.6(H) 27.0 - 33.0 pg [facility] MCHC 32.1 32.0 - 36.0 g/dL [facility] Comment: For adults, a slight decrease in the calculated MCHC value (in the range of 30 to 32 g/dL) is most likely not clinically significant; however, it should be interpreted with caution in correlation with other red cell parameters and the patient's clinical condition. RDW 13.5 11.0 - 15.0 % [facility] PLATELETS 203 140 - 400 Thousand/ uL [facility] MPV 11.2 7.5 - 12.5 fL [facility] NEUTROPHIL ABSOLUTE 3,352 1,500 - 7,800 cells/uL [facility] LYMPHOCYTE ABSOLUTE 1,682 850 - 3,900 cells/uL [facility] MONOCYTE ABSOLUTE 603 200 - 950 cells/uL [facility] EOSINOPHIL ABSOLUTE 110 15 - 500 cells/uL [facility] BASOPHILS ABSOLUTE 52 0 - 200 cells/uL [facility] NEUTROPHIL 57.8 % [facility] LYMPHOCYTES 29.0 % [facility] MONOCYTE 10.4 % [facility] EOSINOPHILS 1.9 % [facility] BASOPHILS 0.9 % [facility] Comment: Test Performed at: [facility] [address] [address] [facility] Blood 04/01/2025 1:17 PM CDT 04/02/2025 2:48 AM CDT us Noris Diaz MD HEMATOLOGY ORDERABLES Final Re sult Performing Organization Address City/[facility]/ZIP Code Phone Number [facility] [phone] [place] [address] [address] [address] * SEDIMENTATION RATE (04/01/2025 1:17 PM CDT) ESR (SEDIMENTATION RATE) 2 < OR = 20 mm/h [facility] Comment: Test Performed at: [place] [address] [address] [address] [facility] Blood 04/01/2025 1:17 PM CDT 04/02/2025 2:51 AM CDT Jillian DALTON HEMATOLOGY ORDERABLES Final Result Performing Organization Address [facility] Phone Number [facility] [phone] [place] [address] [address] [address] * TSH (04/01/2025 1:17 PM CDT) TSH 2.76 mIU/L [facility] Comment: Reference Range > or = 20 Years 0.40-4.50 Ranges First trimester 0.26-2.66 Second trimester 0.55-2.73 Third trimester 0.43-2.91 Test Performed at: [facility] [address] [address] [address] [facility] Blood 04/01/2025 1:17 PM CDT 04/02/2025 2:48 AM CDT Noris Diaz MD CHEMISTRY ORDERABLES Final Res ult Performing Organization Address [facility]/ZIP Code Phone Number [facility] [phone] [place] [address] [address] [address] * (ABNORMAL) HEMOGLOBIN A1C (04/01/2025 1:17 PM CDT) HEMOGLOBIN A1C 5.7(H) <5.7 % of total Hgb [facility] Comment: For someone without known diabetes, a hemoglobin A1c value between 5.7% and 6.4% is consistent with prediabetes and should be confirmed with a follow-up test. For someone with known diabetes, a value <7% indicates that their diabetes is well controlled. A1c targets should be individualized based on duration of diabetes, age, comorbid conditions, and other considerations. This assay result is consistent with an increased risk of diabetes. Currently, no consensus exists regarding use of hemoglobin A1c for diagnosis of diabetes for children. ESTIMATED AVERAGE GLUCOSE (MG/DL) 117 mg/dL [facility] ESTIMATED AVERAGE GLUCOSE (MMOL/L) 6.5 mmol/L [facility] Comment: Test Performed at: [place] [address] [place] [address] Felix [facility] Blood 04/01/2025 1:17 PM CDT 04/02/2025 2:48 AM CDT us Noris Diaz MD CHEMISTRY ORDERABLES Final Res ult [facility] [phone] [place] [address] [address] [address] * (ABNORMAL) LIPID PANEL (04/01/2025 1:17 PM CDT) CHOLESTEROL 227(H) <200 mg/dL [facility] Nichol Mccarty HDL 47(L) > OR = 50 mg/dL [facility] TRIGLYCERIDE 170(H) <150 mg/dL [facility] Systems[facility]ica [facility] LDL CALCULATED 149(H) mg/dL (calc) [facility] Comment: Reference range: <100 Desirable range <100 mg/dL for primary prevention; <70 mg/dL for patients with CHD or diabetic patients with > or = 2 CHD risk factors. LDL-C is now calculated using the Jackie calculation, which is a validated novel method providing better accuracy than the Friedewald equation in the estimation of LDL-C. Zev IRELAND et al. ELENO. 2013;310(19): 5302-8474 (http://education.YourPlace.[employer]/faq/NUY068) CHOL/HDL RATIO 4.8 <5.0 (calc) [facility] NON-HDL CHOLESTEROL 180(H) <130 mg/dL (calc) [facility] Comment: For patients with diabetes plus 1 major ASCVD risk factor, treating to a non-HDL-C goal of <100 mg/dL (LDL-C of <70 mg/dL) is considered a therapeutic option. Test Performed at: [facility] [address] [place] [address] [facility] Vo Blood 04/01/2025 1:17 PM CDT 04/02/2025 2:48 AM CDT Noris Diaz MD CHEMISTRY ORDERABLES Final Res ult [facility] [phone] [facility] [address] [address] [address] * (ABNORMAL) COMPREHENSIVE METABOLIC PANEL (04/01/2025 1:17 PM CDT) GLUCOSE 107(H) 65 - 99 mg/dL [facility] Comment: Fasting reference interval For someone without known diabetes, a glucose value between 100 and 125 mg/dL is consistent with prediabetes and should be confirmed with a follow-up test. BUN 10 7 - 25 mg/dL [facility] CREATININE 0.69 0.50 - 0.96 mg/dL [facility] GFR 121 > OR = 60 mL/min/1. 73m2 [facility] BUN/CREAT RATIO SEE NOTE: 6 - 22 (calc) [facility] Comment: Not Reported: BUN and Creatinine are within reference range. SODIUM 136 135 - 146 mmol/L [facility] POTASSIUM 4.1 3.5 - 5.3 mmol/L [facility] CHLORIDE 101 98 - 110 mmol/L [facility] CO2 23 20 - 32 mmol/L [facility]vin caryn Mccarty CALCIUM 9.4 8.6 - 10.2 mg/dL [facility] TOTAL PROTEIN 6.9 6.1 - 8.1 g/dL [facility] ALBUMIN 4.5 3.6 - 5.1 g/dL [facility] GLOBULIN 2.4 1.9 - 3.7 g/dL (calc) [facility] ALBUMIN/GLOBULIN RATIO 1.9 1.0 - 2.5 (calc) [facility] BILIRUBIN TOTAL 1.0 0.2 - 1.2 mg/dL [facility] ALKALINE PHOSPHATASE 58 31 - 125 U/L [facility] AST 81(H) 10 - 30 U/L [facility]cc[facility] ALT 121(H) 6 - 29 U/L [facility] Mccarty Comment: Test Performed at: [facility] [address] [place] [address] [facility]i Blood 04/01/2025 1:17 PM CDT 04/02/2025 2:48 AM CDT Noris Diaz MD CHEMISTRY ORDERABLES Final Res ult [facility] [phone] [place] [address] [place] [address] * POC INFLUENZA A/B AND COVID-19 ANTIGENS (03/12/2025 3:00 PM CDT) INFLUENZA A AG POC Not Detected Not Detected [facility] INFLUENZA B AG POC Not Detected Not Detected [facility] COVID-19 ANTIGEN POC Presumptively Negative Presumptively Negative [facility] INTERNAL KIT QC POC Pass Pass [facility] KIT LOT NUMBER POC [id number] [facility] [place] KIT EXP DATE POC 11/20/25 [facility] Upper Respiratory 03/12/2025 3:00 PM CDT us Noris Diaz MD POINT OF CARE TESTING Final Re sult [facility] CLIA# [id number] [address] [address] * (ABNORMAL) POC RAPID STREP A ANTIGEN (03/12/2025 3:00 PM CDT) RAPID STREP POC Positive(A) Negative, Indeterminate [facility] INTERNAL KIT QC POC Pass Pass [facility] KIT LOT NUMBER POC [id number] [facility] KIT EXP DATE POC 10/29/25 [facility] READ METHOD POC Instrument [facility] Upper Respiratory SPECIMEN FROM THROAT / Unknown 03/12/2025 3:00 PM CDT us Noris Diaz MD POINT OF CARE TESTING Final Re sult [facility] CLIA# [id number] [address] [address] from Last 3 Months Insurance * Guarantor: [employer]) Account Type Relation to Patient Date of Phone Billing Address Corporate Employer ATTN: [employer] [address] [address] AL[place]GIAN OPEN ACCESS Care Teams Superintendent Laundry Relationship Specialty Start Date End Date Noris Diaz MD [address] [place] [address] PCP - General Internal Medicine 01/18/24
--- OUTSIDE RECORDS SUMMARY | 2025-04-15 15:08 | XMS_ITS | Clinical Summary ---
Author Organization [facility] Address [address] [place] [address] Care Team Providers Care Kieselguhr Regenerator Operator Name Role Phone Elena Glaser MD Unavailable [phone] Laura Sheldon MD Unavailable [phone] Balbina Trevino MD, Ricki Valencia Primary Care Provide r Allergies Active Allergy Reactions Criticality Noted Date Comments Latex Unknown Low 12/14/2019 Medications ibuprofen (ibuprofen) 200 mg tab/cap Take by mouth every 6 (six) hours as needed for pain Active Clobex 0.05 % shampoo 1 Active Duobrii 0.01-0.045 % lotion 1 Active hydrOXYzine (ATARAX) 25 mg tablet Take 25 mg by mouth every 6 (six) hours as needed 1 Active neomycin-polymy rylan-HC (CORTISPORIN) 3.5-10,000-1 mg/mL-unit/mL-% otic suspensionIndic ations:Otitis Externa Administer 3 drops into the left ear 4 (four) times a day 10 mL 2 1 Active Additional Information Patient not taking.Reported on 06/07/2021 Skyrizi 150 mg/mL syringe 1 Active Active Problems Problem Noted Date Diagnosed Date Contusion of hand including fingers 11/18/2020 Sprain of shoulder 11/18/2020 Traumatic hematoma of elbow 11/18/2020 Encounter for preventive health examination 10/22 Assessment & Plan (11/18/2020 9:02 AM CDT): Wear sunscreen while outdoors. Wear seatbelts while in a vehicle. Do not text and drive. Follow a heart healthy diet and lifestyle. Advise moderate CV exercise 150 min/wk or high-intensity exercise 75 min/wk. Consume 5-7 servings of fruits and vegetables a day. Maintain/attain normal body weight, goal BMI 18.5-25. Maintain good sleep schedule and sleep habits. I recommend that all patients follow a diet that is high in fruits and vegetables and low in processed foods such as sugar and foods that are made with white flour. I recommend using beneficial fats such as olive oil, nuts, seeds and berries and avoiding saturated animal fats. Please stay physically active to the extent that you are able. Polyarthralgia 11/18/2020 Assessment & Plan (11/18/2020 9:38 AM CDT): Obtain XR and labs, check for psoriatic arthritis Right foot pain 11/18/2020 Overview (11/18/2020): Refer to podiatry. 25 y/o F with chronic rt foot pain with running. Assessment & Plan (11/18/2020 9:40 AM CDT): Suspect structural- only with running. Exam neg. Avoid overuse running, nsaids prn. 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 Pt given splint to wear and advised avoidance of overuse and lifting. Referred to PT/OT. If no improvement consider referral to ortho. Dorsalgia 11/18/2020 Assessment & Plan (11/18/2020 9:38 AM CDT): Obtain XR, check for psoriatic arthritis. Also scoliosis. Rec NSAIDs prn. Can refer to PT if gets worse. Closed fracture of right elbow 12/31/2019 Assessment & Plan (12/31/2019 4:39 PM CDT): Refer to ortho to be seen this week. 24 y/o F with right olecranon fracture and nondisplaced distal radial fracture after fall 2 weeks ago. Inability to extend elbow. NSAID's prn. Avoid use and keep protected. Closed fracture of right distal radius 0 Assessment & Plan (12/31/2019 4:39 PM CDT): F/u ortho. Psoriasis 12/31/2019 Assessment & Plan (11/18/2020 9:41 AM CDT): COnt to f/u derm Assessment & Plan (12/31/2019 4:40 PM CDT): Refer to derm. 24 y/o with generalized psoriasis. Scalp is especially bad. Cigarette smoker 12/31/2019 Assessment & Plan (12/31/2019 4:45 PM CDT): Discuss at follow up visit Wrist pain, right 12/31/2019 Right elbow pain 12/31/2019 Scoliosis 04/15/2015 Immunizations Immunization Administration Dates Next Due Influenza, Unspecified 06/07/2021(Deferred: Mile ent Refused) Tdap 12/14/2019 Surgical History Surgery Date Site/Laterality Comments APPENDECTOMY Medical History Medical History Date Comments Psoriasis Scoliosis mild Bipolar 1 disorder (HCC) Family History Medical History Relation Name Comments No Known Problems Father Cancer Mother cervical cancer Cancer Other 1 Family history of malignant neoplasm - Relation: Grandparent (Added by TW Conv) Heart disease Other 2 Family history of cardiac disorder - Relation: Grandparent (Added by TW Conv) Arthritis Other 3 Family history of arthritis - Relation: Grandparent (Added by TW Conv) Hypertension Other 4 Family history of hypertension - Relation: Grandparent (Added by TW Conv) Stroke Other 5 Family history of cerebrovascular accident - Relation: Grandparent (Added by TW Conv) Diabetes Other 6 Family history of diabetes mellitus - Relation: Grandparent (Added by TW Conv) Relation Name Status Comments Father (Age 48) Mother Alive Other 1 Other 2 Other 3 Other 4 Other 5 Other 6 Social History Tobacco Use Types Packs/Day Years Used Date Smoking Tobacco: Every Day Cigarettes 0.5 15.7 Started: 2009 Smokeless Tobacco: Never Tobacco Cessation:Ready to Q uit: No; Counseling Given: Yes Alcohol Use Standard Drinks/Week Comments Yes 0 (1 standard drink = 0.6 oz pur e alcohol) AUDIT-C Answer Date Recorded Q1: How often do you have a drink containing alc ohol? Never 06/07/2021 Average Number of Drinks Not on file 021 Q3: How often do you have si x or more drinks on one occasion? Never 06/07/2021 PHQ-2 Answer Date Recorded PHQ-2 Total Score (If total score is 3 or more points, staff should administer the PHQ-9) 0 12/06/2020 Comments No Sex and Gender Information Value Date Recorded Sex Assigned at Not on file Legal Sex Female 11:34 AM MASTER BAKER Gender Identity Female 03/22/2020 11:03 AM CDT Sexual Orientation Straight 03/22/2020 11 :03 AM CDT Obstetrics History Last Filed Vital Signs Vital Sign Reading Time Taken Comments Blood Pressure 92/58 06/07/2021 2:53 PM MASTER BAKER Pulse 105 06/07/2021 2:53 PM MASTER BAKER Temperature 36.7 C (98.1 F) 06/07/2021 2:53 PM MASTER BAKER Respiratory Rate 16 06/07/2021 2:53 PM MASTER BAKER Oxygen Saturation 97% 06/07/2021 2:53 PM MASTER BAKER Inhaled Oxygen Concentration - - Weight 76.7 kg (169 lb) 06/07/2021 2:53 PM MASTER BAKER Height 160 cm (5' 3) 06/07/2021 2:53 PM MASTER BAKER Body Mass Index 29.94 06/07/2021 2:53 PM MASTER BAKER Plan of Treatment Not on file Care Teams Kieselguhr Regenerator Operator Relationship Specialty Start Date End Date Ricki Mortensen Jr., MD [address] [address] PCP - General Internal Medicine 06/01/21 Elena Glaser MD [address] [facility] [address] [place] [address] Referring Physician Obstetrics and Gynecology 12/30/19 Laura Sheldon MD [address] [place] [address] Referring Physician Dermatology 11/18/20
--- OUTSIDE RECORDS SUMMARY | 2025-04-15 15:08 | XMS_ITS | Encounter Summary ---
Author Organization [facility] Address [address] [place] [address] Care Team Providers Care Ceramic Restorer Name Role Phone Noris Diaz MD Primary Care Provider [phone] Encounter Details Date Type Department Care Team (Late st Contact Info) Description 04/02/2025 Results Follow-Up [facility] [employer] [place] [address] [place] [address] [place] [address] [facility] Janene Lindquist [address] [place] [address] SEDIMENTATION RATE Social History Tobacco Use Types Packs/Day Years [...] on file Sexual Orientation Not on file documented as of this encounter Miscellaneous Notes * Result Encounter Note - Ryan Díaz - 04/02/2025 10:50 AM CDT Patient called back and results were relayed. Patient voiced understanding. * Result Encounter Note - Catherine Ponce - 04/02/2025 9:57 AM CDT Lvm for pt to call our office back regarding labs. * Result Encounter Note - Jillian Crow ANP - 04/02/2025 9:03 AM CDT Inflammation level was checked due to rash. It is normal. Await other result on labs ordered by Dr. Diaz. documented in this encounter Plan of Treatment Not on file documented as of this encounter Visit Diagnoses Not on filedocumented in this encounter Care Teams Ceramic Restorer Relationship Specialty Start Date End Date Noris Diaz MD [address] [place] [address] [place] [address] PCP - General Internal Medicine 01/18/24 documented as of this encounter
--- OUTSIDE RECORDS SUMMARY | 2025-04-15 15:08 | XMS_ITS | Encounter Summary ---
Author Organization [facility] Address [address] [place] [address] Care Team Providers Care Wire Chief Name Role Phone Noris Diaz MD Primary Care Provider [phone] Encounter Details Date Type Department Care Team (Late st Contact Info) Description 04/02/2025 Results Follow-Up 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 Follow up appointment scheduled with Dr. Malone on 04/09/2025. * Result Encounter Note - Maxine Sutherland RN - 04/02/2025 1:18 PM CDT Left voicemail for patient to call back regarding lab results. documented in this encounter Plan of Treatment Not on file documented as of this encounter Visit Diagnoses Not on filedocumented in this encounter Care Teams Wire Chief Relationship Specialty Start Date End Date Noris Diaz MD [address] [place] [address] PCP - General Internal Medicine 01/18/24 documented as of this encounter"
[2025-04-15 16:02] LABS: Hematocrit 41.2 % (37.0-47.0); Hemoglobin 13.7 g/dL (12.0-15.0); Immature Granulocyte Percent A 0.3 % (0-0.5); Lymphocytes Absolute Auto 1.98 K/mm3 (0.9-3.2); Mean Corpuscular HGB Conc 33.3 g/dl (32-36); Mean Corpuscular Hemoglobin 34.1 pg (26-34); Mean Corpuscular Volume 102.5 fl (80-100); Nucleated Red Blood Cells Absolute Auto 0.000 K/mm3 (0.0-0.012); Nucleated Red Blood Cells Perc 0.0 % (0.0-0.2); Platelet Count Result 249 k/mm3 (150-375); Red Blood Count 4.02 M/mm3 (4.2-5.4); White Blood Count 5.9 K/mm3 (4.5-10.0)
--- OUTSIDE RECORDS SUMMARY | 2025-04-15 16:08 | XMS_ITS | Clinical Summary ---
Author Organization [facility] [employer] [facility] Address [address] [employer] [address] Care Team Providers Care Circular Ripsaw Operator Name Role Phone Noris Diaz MD Primary Care Provider [phone] Allergies Active Allergy Reactions Criticality Noted Date [...] Department Care Team Description 04/02/2025 Results Follow-Up [facility] [employer] [place] [address] [place] [address] Noris Diaz MD COMPREHENSIVE METABOLIC PANEL, CBC WITH DIFFERENTIAL, LIPID PANEL, Additional followed-up results: 2 04/02/2025 Results Follow-Up [facility] [employer] [place] [address] [place] [address] Jillian Crow, ANP SEDIMENTATION RATE 04/01/2025 1:20 PM CDT Office Visit [facility] [place] [address] [place] [address] Rash; Screening for condition; Hx gestational diabetes 03/30/2025 Telephone [facility] [place] [address] [place] [address] Jillian Crow, SHA Rash 03/18/2025 2:00 PM CDT Office Visit [facility] [place] [address] [place] [address] Noris Diaz MD Rash (Primary Dx) 03/16/2025 11:20 AM CDT Procedure visit [facility] [place] [address] [place] [address] Issue of repeat prescription for medication (Primary Dx) 03/16/2025 Telephone [facility] [place] [address] [place] [address] Jillian Crow, SHA Erroneous encounter-disregard 03/12/2025 3:00 PM CDT Office Visit [facility] [place] [address] [place] [address] Noris Diaz MD Acute streptococcal pharyngitis (Primary Dx); Sore throat; Screening for condition; Hx gestational diabetes from Last 3 Months Family History Medical History Relation Name Comments Other Father car accident Psoriasis Maternal Grandfather head in [facility] Dementia Paternal Grandmother Psoriasis Sister Relation Name [...] WITH DIFFERENTIAL (04/01/2025 1:17 PM CDT) Pathologist [facility] WBC 5.8 3.8 - 10.8 Thousand/ uL [...] Diagnostics-S t Lul Comment: Test Performed at: [facility] [address] [place] [address] [facility] Blood 04/01/2025 1:17 PM CDT 04/02/2025 2:48 AM CDT us Noris Diaz MD HEMATOLOGY ORDERABLES Final Re sult Performing Organization Address City/[facility]/ZIP Code Phone Number [facility] [phone] [place] [address] [address] [place] [address] * SEDIMENTATION RATE (04/01/2025 1:17 PM CDT) ESR (SEDIMENTATION RATE) 2 < OR = 20 mm/h [facility] Comment: Test Performed at: [place] [address] [address] [place] [address] [facility] Blood 04/01/2025 1:17 PM CDT 04/02/2025 2:51 AM CDT Jillian DALTON HEMATOLOGY ORDERABLES Final Result Performing Organization Address [facility] Phone Number [facility] [phone] [place] [address] [address] [place] [address] * TSH (04/01/2025 1:17 PM CDT) TSH 2.76 mIU/L [facility] Comment: Reference Range > or = 20 Years 0.40-4.50 Ranges First trimester 0.26-2.66 Second trimester 0.55-2.73 Third trimester 0.43-2.91 Test Performed at: [facility] [address] [address] [place] [address] [facility] Blood 04/01/2025 1:17 PM CDT 04/02/2025 2:48 AM CDT Noris Diaz MD CHEMISTRY ORDERABLES Final Res ult Performing Organization Address [facility]/ZIP Code Phone Number [facility] [phone] [place] [address] [address] [place] [address] * (ABNORMAL) HEMOGLOBIN A1C (04/01/2025 1:17 PM CDT) HEMOGLOBIN A1C 5.7(H) <5.7 % of total Hgb [facility] Comment: For someone without known diabetes, [...] children. ESTIMATED AVERAGE GLUCOSE (MG/DL) 117 mg/dL [facility] ESTIMATED AVERAGE GLUCOSE (MMOL/L) 6.5 mmol/L [facility] Comment: Test Performed at: [place] [address] [place] [address] Felix [facility]ana Blood 04/01/2025 1:17 PM CDT 04/02/2025 2:48 AM CDT us Noris Diaz MD CHEMISTRY ORDERABLES Final Res ult [facility] [phone] [place] [address] [address] [place] [address] * (ABNORMAL) LIPID PANEL (04/01/2025 1:17 PM CDT) CHOLESTEROL 227(H) <200 mg/dL [facility] Nichol Mccarty HDL 47(L) > OR = 50 mg/dL [facility] TRIGLYCERIDE 170(H) <150 mg/dL [facility] TC[facility] HoldingsJessica Mccarty LDL CALCULATED 149(H) mg/dL (calc) [facility] Mcc[facility] Comment: Reference range: <100 Desirable range <100 mg/dL for primary prevention; <70 mg/dL for patients with CHD or diabetic patients with > or = 2 CHD risk factors. LDL-C is now calculated using the Jackie calculation, which is a validated novel method providing better accuracy than the Friedewald equation in the estimation of LDL-C. Zev IRELAND et al. ELENO. 2013;310(19): 0292-2966 (http://education.Cuturia.LikeAndy/faq/SKV096) CHOL/HDL RATIO 4.8 <5.0 (calc) [facility] NON-HDL CHOLESTEROL 180(H) <130 mg/dL (calc) [facility] Comment: For patients with diabetes plus 1 major ASCVD risk factor, treating to a non-HDL-C goal of <100 mg/dL (LDL-C of <70 mg/dL) is considered a therapeutic option. Test Performed at: [place] [place] [address] [place] [address] [facility]on Vo Blood 04/01/2025 1:17 PM CDT 04/02/2025 2:48 AM CDT Noris Diaz MD CHEMISTRY ORDERABLES Final Res ult [facility] [phone] [place] [address] [address] [place] [address] * (ABNORMAL) COMPREHENSIVE METABOLIC PANEL (04/01/2025 1:17 PM CDT) GLUCOSE 107(H) 65 - 99 mg/dL [facility] Comment: Fasting reference interval For someone without known diabetes, a glucose value between 100 and 125 mg/dL is consistent with prediabetes and should be confirmed with a follow-up test. BUN 10 7 - 25 mg/dL [facility] CREATININE 0.69 0.50 - 0.96 mg/dL [facility] GFR 121 > OR = 60 mL/min/1. 73m2 [facility] BUN/CREAT RATIO SEE NOTE: 6 - 22 (calc) [facility] Comment: Not Reported: BUN and Creatinine are within reference range. SODIUM 136 135 - 146 mmol/L [facility] POTASSIUM 4.1 3.5 - 5.3 mmol/L [facility] CHLORIDE 101 98 - 110 mmol/L [facility] M[facility] CO2 23 20 - 32 mmol/L [facility]Marvin caryn Mccarty CALCIUM 9.4 8.6 - 10.2 mg/dL [facility] caryn Mccarty TOTAL PROTEIN 6.9 6.1 - 8.1 g/dL [facility] caryn Mccarty ALBUMIN 4.5 3.6 - 5.1 g/dL [facility] caryn Mccarty GLOBULIN 2.4 1.9 - 3.7 g/dL (calc) [facility] caryn Mccarty ALBUMIN/GLOBULIN RATIO 1.9 1.0 - 2.5 (calc) [facility] c[facility] Mccarty BILIRUBIN TOTAL 1.0 0.2 - 1.2 mg/dL [facility] caryn Mccarty ALKALINE PHOSPHATASE 58 31 - 125 U/L [facility] caryn Mccarty AST 81(H) 10 - 30 U/L [facility] caryn Mccarty ALT 121(H) 6 - 29 U/L [facility] caryn Mccarty Comment: Test Performed at: [facility] [address] [place] [address] [facility] Ashly Addi Blood 04/01/2025 1:17 PM CDT 04/02/2025 2:48 AM CDT Noris Diaz MD CHEMISTRY ORDERABLES Final Res ult [facility] [phone] [place] [address] [place] [address] * POC INFLUENZA A/B AND COVID-19 ANTIGENS (03/12/2025 3:00 PM CDT) INFLUENZA A AG POC Not Detected Not Detected [facility] INFLU[facility] B AG POC Not Detected Not Detected [facility] COVID-19 ANTIGEN POC Presumptively Negative Presumptively Negative [facility] INTERNAL KIT QC POC Pass Pass [facility] K[facility] LOT NUMBER POC [id number] [facility] [place] KIT EXP DATE POC 11/20/25 [facility] Upper Respiratory 03/12/2025 3:00 PM CDT us Noris Diaz MD POINT OF CARE TESTING Final Re sult [facility] CLIA# [id number] [address] [address] * (ABNORMAL) POC RAPID STREP A ANTIGEN (03/12/2025 3:00 PM CDT) RAPID STREP POC Positive(A) Negative, Indeterminate [facility] INTERNAL KIT QC POC Pass Pass [facility] K[facility] LOT [facility] POC [id number] [facility] KIT EXP DATE POC 10/29/25 [facility] READ METHOD POC Instrument [facility] Upper Respiratory SPECIMEN FROM THROAT / Unknown 03/12/2025 3:00 PM CDT us Noris Diaz MD POINT OF CARE TESTING Final Re sult [facility] CLIA# [id number] [address] [address] from Last 3 Months Insurance * Guarantor: [employer]) Account Type Relation to Patient Date of Phone Billing Address Corporate Employer ATTN: ABY CHEEK [address] [address] [employer]LE[employer] OPEN ACCESS Care Teams Circular Ripsaw Operator Relationship Specialty Start Date End Date Noris Diaz MD [address] [place] [address] PCP - General Internal Medicine 01/18/24
--- OUTSIDE RECORDS SUMMARY | 2025-04-15 16:08 | XMS_ITS | Encounter Summary ---
Author Organization [facility] Address [address] [place] [address] Care Team Providers Care Graphic Design Specialist Name Role Phone Noris Diaz MD Primary Care Provider [phone] Encounter Details Date Type Department Care Team (Late st Contact Info) Description 04/02/2025 Results [facility] [employer] [place] [address] [place] [address] [place] [address] [facility] Janene Lind[employer]ust [address] [place] [address] SEDIMENTATION RATE Social History Tobacco [...] on filedocumented in this encounter Care Teams Graphic Design Specialist Relationship Specialty Start Date End Date Noris Diaz MD [address] [place] [address] [place] [address] PCP - General Internal Medicine 01/18/24 documented as of this encounter
--- OUTSIDE RECORDS SUMMARY | 2025-04-15 16:08 | XMS_ITS | Clinical Summary ---
Author Organization [facility] Address [address] [place] [address] Care Team Providers Care Python Developer Name Role Phone Elena lGaser MD Unavailable [phone] Laura Sheldon MD Unavailable [phone] Bablina Trevino MD, Ricki Valencia Primary Care Provide [...] on file Legal Sex Female 11:34 AM MINING SPECULATOR Gender Identity Female 03/22/2020 11:03 AM CDT Sexual Orientation Straight 03/22/2020 11 :03 AM CDT Obstetrics History Last Filed Vital Signs Vital Sign Reading Time Taken Comments Blood Pressure 92/58 06/07/2021 2:53 PM MINING SPECULATOR Pulse 105 06/07/2021 2:53 PM MINING SPECULATOR Temperature 36.7 C (98.1 F) 06/07/2021 2:53 PM MINING SPECULATOR Respiratory Rate 16 06/07/2021 2:53 PM MINING SPECULATOR Oxygen Saturation 97% 06/07/2021 2:53 PM MINING SPECULATOR Inhaled Oxygen Concentration - - Weight 76.7 kg (169 lb) 06/07/2021 2:53 PM MINING SPECULATOR Height 160 cm (5' 3) 06/07/2021 2:53 PM MINING SPECULATOR Body Mass Index 29.94 06/07/2021 2:53 PM MINING SPECULATOR Plan of Treatment Not on file Care Teams Python Developer Relationship Specialty Start Date End Date Ricki Mortensen Jr., MD [address] [address] PCP - General Internal Medicine 06/01/21 Elena Glaser MD [address] [facility] [address] [place] [address] Referring Physician Obstetrics and Gynecology 12/30/19 Laura Sheldon MD [address] [place] [address] Referring Physician Dermatology 11/18/20
--- OUTSIDE RECORDS SUMMARY | 2025-04-15 16:08 | XMS_ITS | Encounter Summary ---
Author Organization [facility] Address [address] [place] [address] Care Team Providers Care Organ Pipe Voicer Name Role Phone Noris Diaz MD Primary Care Provider [phone] Encounter Details Date Type Department Care Team (Late st Contact Info) Description 04/02/2025 Results Follow-Up [facility] at Work [employer] [address] [place] [address] Noris Diaz MD [address] [place] [place] [address] COMPREHENSIVE METABOLIC PANEL, CBC WITH [...] on filedocumented in this encounter Care Teams Organ Pipe Voicer Relationship Specialty Start Date End Date Noris Diaz MD [address] [place] [address] PCP - General Internal Medicine 01/18/24 documented as of this encounter
[2025-04-15 16:10] LABS: Alanine Aminotransferase 181 U/L (6-35); Albumin Level 4.3 g/dL (3.5-5.1); Alkaline Phosphatase 71 U/L (38-126); Anion Gap 11 mmol/L (4-12); Aspartate Amino Transferase 174 U/L (14-36); Bilirubin,Total 0.4 mg/dL (0.2-1.3); Blood Urea Nitrogen 5 mg/dL (7-17); Calcium 8.7 mg/dL (8.4-10.2); Carbon Dioxide 21 mmol/L (22-30); Chloride 102 mmol/L (98-107); Estimated CRCL calculation 142 ml/min; Estimated Glomerular Filt Rate > 60; Glucose 83 mg/dL (65-110); Potassium 3.8 mmol/L (3.4-5.0); Sodium 134 mmol/L (137-145); Total Protein 7.3 g/dL (6.3-8.2)
[2025-04-15 16:13] LABS: INR 1.0; Partial Thromboplastin Time 24.3 Seconds (22.3-36.8); Prothrombin Time 13.6 Seconds (11.1-14.7)
[2025-04-15 16:27] LABS: Beta HCG Quantitative 307.71 mIU/ML
--- NOTE | 2025-04-15 17:49 | ED_ITS ---
HPI - General Chief complaint: Vaginal Bleeding Stated complaint: miscarriage Time Seen by Provider: 04/15/25 15:13 Source: patient Mode of arrival: ambulatory Limitations: no limitations History of Present Illness HPI Narrative: 29-year-old 2 para 1 at about 4-6 weeks of gestation here with the complaints of vaginal bleeding on and off since this morning. Patient states that she may be miscarrying. She found out that she was 4 days ago. Denies any abdominal pain or cramping. Onset (ago): day(s) (1) Pain Consistency: intermittent Severity: mild Relieving factors: none Exacerbating factors: none Related Data Home Medications ?Medication ?Instructions ?Recorded ?Confirmed ?Last Taken ?Type risankizumab-rzaa 150 mg/mL mg subcut .3 mos 04/15/25 03/26/25 History subcutaneous pen injector (Skyrizi) Allergies Allergy/AdvReac Type Severity Reaction Status Date / Time Latex, Natural Rubber Allergy Itching Verified 04/15/25 15:20 Review of Systems 2 Review of Systems: All systems reviewed & are unremarkable except as noted in HPI and below Constitutional: Constitutional: Reports no additional constitutional complaints Eyes: Eyes: Reports no additional eye complaints ENT: Reports system reviewed and no additional complaints, except as documented Cardiovascular: Cardiovascular: Reports no additional cardiovascular complaints Respiratory: Respiratory: Reports no additional respiratory complaints Gastrointestinal: Gastrointestinal: Reports no additional gastrointestinal complaints Genitourinary: Genitourinary: Reports as per HPI [facility] Surgical History Surgical History History of appendectomy 2007 - open appendectomy Family History Family History Mother Cervical cancer Grandparent Diabetes mellitus Cancer Heart disease Cerebrovascular accident Social History Social History Smoking status: Current every day smoker Tobacco type: cigarettes Alcohol intake: former Substance use: never Do You Feel Safe in your Home?: Yes Lack of Transportation: No Lack of Food: Never True Current Housing: I Have Housing Concerned About Future Housing: No Difficulty Paying Gas/Electric Bills: No Difficulty Paying for Meds: No Currently Unemployed: No Education: High School Diploma/GED Difficulty w/ Childcare or Family Care: No Occupation/Education: occupation 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 HEAD: Normocephalic, atraumatic. EYES: PERRLA and EOMI. ENT: Nares clear, no rhinorrhea or epistaxis. Mucous membranes moist. NECK: Supple. CHEST: Clear to auscultation. No respiratory distress. HEART: Regular rate and rhythm. No murmur heard. Normal peripheral pulses. ABDOMEN: Soft, nontender, nondistended, normal active bowel sounds. EXTREMITIES: Normal range of motion. No edema. SKIN: Warm, dry, has erythematous rash diffuse. NEURO: No focal deficits. Alert and oriented x3. PSYCH: Normal mood and affect. Course Course Emergency Course: Notified patient about her lab work ultrasound findings. Advised to follow with the primary doctor repeat beta-hCG in few days. Patient does feel comfortable going home. Advised to return to the ER if the bleeding is heavy or feeling lightheaded. Vital Signs Vital signs: Vital Signs Temperature 36.4 C 04/15/25 15:08 Pulse Rate 99 04/15/25 15:08 Respiratory Rate 16 04/15/25 15:08 Blood Pressure 123/80 04/15/25 15:08 Pulse Oximetry 96 04/15/25 15:08 Oxygen Delivery Room Air 04/15/25 15:08 Temperature 36.4 C 04/15/25 15:08 Pulse Rate 99 04/15/25 15:08 Respiratory Rate 16 04/15/25 15:08 Blood Pressure 123/80 04/15/25 15:08 Pulse Oximetry 96 04/15/25 15:08 Oxygen Delivery Room Air 04/15/25 15:08 MDM - OB/Uterine Contractions Lab Data 04/15/25 15:52 04/15/25 15:53 Labs: Lab Results 04/15/25 04/15/25 Range/Units 15:52 15:53 WBC 5.9 (4.5-10.0) K/mm3 RBC 4.02 L (4.2-5.4) M/mm3 Hgb 13.7 (12.0-15.0) g/dL Hct 41.2 (37.0-47.0) % MCV 102.5 H (80-100) fl MCH 34.1 H (26-34) pg MCHC 33.3 (32-36) g/dl RDW 14.9 H (11.5-14.5) % Plt Count 249 (150-375) k/mm3 MPV 9.5 (7.4-10.4) fl Immature Gran % (Auto) 0.3 (0-0.5) % Neut % (Auto) 56.3 (45.5-73.1) % Lymph % (Auto) 33.6 (18.3-44.2) % [place] % (Auto) 7.8 (2.6-8.5) % Eos % (Auto) 1.0 (0-4.4) % Baso % (Auto) 1.0 (0.2-1.2) % Lymph # (Auto) 1.98 (0.9-3.2) K/mm3 [place] # (Auto) 0.5 (0.1-0.6) K/mm3 Eos # (Auto) 0.1 (0-0.3) K/mm3 Baso # (Auto) 0.1 (0.0-0.1) K/mm3 Abs Immat Gran (auto) 0.02 (0.00-0.031) K/mm3 Absolute Neuts (auto) 3.3 (1.3-6.7) K/mm3 Absolute Nucleated RBC 0.000 (0.0-0.012) K/mm3 Nucleated RBC % 0.0 (0.0-0.2) % PT 13.6 (11.1-14.7) Seconds INR 1.0 APTT 24.3 (22.3-36.8) Seconds Sodium 134 L (137-145) mmol/L Potassium 3.8 (3.4-5.0) mmol/L Chloride 102 (98-107) mmol/L Carbon Dioxide 21 L (22-30) mmol/L Anion Gap 11 (4-12) mmol/L BUN 5 L (7-17) mg/dL Creatinine 0.52 L (0.7-1.0) mg/dL Estim Creat Clear Calc 142 ml/min Estimated GFR > 60 (59 - ) Glucose 83 (65-110) mg/dL Calcium 8.7 (8.4-10.2) mg/dL Total Bilirubin 0.4 (0.2-1.3) mg/dL AST 174 H (14-36) U/L ALT 181 H (6-35) U/L Alkaline Phosphatase 71 (38-126) U/L Total Protein 7.3 (6.3-8.2) g/dL Albumin 4.3 (3.5-5.1) g/dL Beta HCG, Quant 307.71 mIU/ML Discharge Plan Discharge Clinical Impression: Abnormal vaginal bleeding, Miscarriage Patient Disposition: Home Condition: Stable Instructions: Miscarriage (ED) Additional Instructions: bleeding precautions, follow with DR. Guzmán , Patient Language: Lao Prescriptions: No Action Skyrizi 150 mg/mL pen injector SUBCUT .3 mos Follow-up/Referrals: Martin Guzmán MD [Physician, E/M ENGINEER] Olimpia Luong MD [Primary Care Provider, General Surgery] Time of Disposition: 17:54
[2025-04-15 18:24] VITALS: BP 115/88; PULSE 92; RESP 16; TEMP 36.3; O2SAT 97
== END 2025-04-15 18:27 | disposition home or self-care (01) ==
PROVIDERS: Emergency Provider Family Medicine; PCP Surgery
DX: O03.9 Complete or unspecified spontaneous abortion without complication (principal); F17.210 Nicotine dependence, cigarettes, uncomplicated
CPT/HCPCS: 36415; 76801; 76817; 80053; 84702; 85025; 85610; 85730; 99284

== ENCOUNTER 2025-07-10 08:57 | Emergency (ER) | payer OTHER, SELFPAY ==
--- OUTSIDE RECORDS SUMMARY | 2025-07-09 09:00 | XMS_ITS | Encounter Summary ---
Author Organization [facility] Address [address] [place] [address] Care Team Providers Care Valet Runner Name Role Phone Noris Diaz MD Primary Care Provider [phone] Reason for Visit * Reason Comments Sore Throat Patient states she g enerally doesn't feel good, and saw a black spot on her tonsil. Had chest congestion two weeks ago. Feels like has fluid in her ears. Encounter Details Date Type Department Care Team (Late st Contact Info) Description 07/09/2025 9:00 AM DISPLAY FABRICATION SUPERVISOR Office Visit [facility] at Work [employer] [place] [address] [place] [address] Jillian Crow, [facility] [address] [place] [address] Acute streptococcal pharyngitis (Primary Dx); Loose toenail; Sore throat; Pre-diabetes; Amenorrhea Social History Tobacco Use Types Packs/Day Years [...] on file documented as of this encounter Last Filed Vital Signs Vital Sign Reading Time Taken Comments Blood Pressure 118/72 07/09/2025 8:59 AM DISPLAY FABRICATION SUPERVISOR Pulse 109 07/09/2025 8:59 AM DISPLAY FABRICATION SUPERVISOR Temperature 36.8 C (98.3 F) 07/09/2025 8:59 AM DISPLAY FABRICATION SUPERVISOR Respiratory Rate 18 07/09/2025 8:59 AM DISPLAY FABRICATION SUPERVISOR Oxygen Saturation 97% 07/09/2025 8:59 AM DISPLAY FABRICATION SUPERVISOR Inhaled Oxygen Concentration - - Weight 83.5 kg (184 lb) 07/09/2025 8:59 AM DISPLAY FABRICATION SUPERVISOR Height 160 cm (5' 3) 07/09/2025 8:59 AM DISPLAY FABRICATION SUPERVISOR Body Mass Index 32.59 07/09/2025 8:59 AM DISPLAY FABRICATION SUPERVISOR documented in this encounter Progress Notes * Jillian Crow, ANP - 07/09/2025 9:26 AM CST HISTORY OF PRESENT ILLNESS Aby Guerrero, a 29 y.o. female presents with a Chief Complaint of Sore Throat (Patient states she generally doesn't feel good, and saw a black spot on her tonsil. Had chest congestion two weeks ago. Feels like has fluid in her ears.) Woke this AM with severe sore throat on R side. Hard to talk. No difficulty with swallowing. R ear pressure without pain. No fever, or chills. Reports no fever with past strep infections, which most recent was February 2025. No ill contacts of which she is aware. Had URI two weeks ago that resolved. No treatment for ST tried. Struck her toenail of L great toe around 2 weeks ago. Nail lifted. Remains painful and she is unable to wear heels. Concerned nail should be removed. LMP one month ago. 3 days late on menses start. Not using contraception. REVIEW OF SYSTEMS Review of Systems Constitutional: Positive for fatigue. Negative for chills and fever. HENT: Positive for ear pain (pressure R side), rhinorrhea (clear) and sore throat. Negative for drooling, sinus pressure, sinus pain and trouble swallowing. Speech slightly garbled. Respiratory: Positive for cough. Negative for chest tightness and shortness of breath. Cardiovascular: Negative. Musculoskeletal: Negative for arthralgias, myalgias, neck pain and neck stiffness. Skin: Negative for rash. Allergic/Immunologic: Negative for immunocompromised state. Neurological: Negative for dizziness, light-headedness and headaches. Hematological: Negative for adenopathy. Objective PHYSICAL EXAM BP 118/72 (BP Location: Right arm, Patient Position (BP): Sitting, BP Cuff Size: Adult) Pulse (!) 109 Temp 98.3 ??F (36.8 ??C) (Tympanic) Resp 18 Ht 5' 3 (1.6 m) Wt 83.5 kg (184 lb) LMP108/06/2024 SpO2 97% BMI 32.59 kg/m?? Physical Exam Vitals reviewed. HENT: Head: Normocephalic. Right Ear: Tympanic membrane is scarred and bulging. Tympanic membrane is not erythematous. Left Ear: Tympanic membrane is bulging. Tympanic membrane is not erythematous. Nose: Congestion and rhinorrhea present. Rhinorrhea is clear. Right Turbinates: Swollen. Left Turbinates: Swollen. Mouth/Throat: Lips: [place]. Mouth: Mucous membranes are moist. Pharynx: Uvula midline. Oropharyngeal exudate (slight R tonsil) and posterior oropharyngeal erythema present. No uvula swelling. Tonsils: Tonsillar exudate (Right side only) present. No tonsillar abscesses. 3+ on the right. 1+ on the left. Cardiovascular: Rate and Rhythm: Normal rate and regular rhythm. Heart sounds: Normal heart sounds. Pulmonary: Effort: Pulmonary effort is normal. Breath sounds: Normal breath sounds. Musculoskeletal: Cervical back: Normal range of motion and neck supple. Lymphadenopathy: Head: Right side of head: No submandibular or tonsillar adenopathy. Left side of head: No submandibular or tonsillar adenopathy. Cervical: No cervical adenopathy. Upper Body: Right upper body: No supraclavicular adenopathy. Left upper body: No supraclavicular adenopathy. Skin: Comments: R great toenail slightly lifted from distal area. Scant dry blood drainage around nail. No swelling. Neurological: Mental Status: She is alert. Psychiatric: Mood and Affect: Mood normal. Procedures Assessment ASSESSMENT and PLAN: 1. Acute streptococcal pharyngitis (Primary) Positive test. No abscess. Start zpak. Preg test negative, but late on menses. PCN allergy. - azithromycin (Zithromax Z-Petr) 250 mg tablet; Take two pills on day 1, then one pill daily until gone. Dispense: 6 Tablet; Refill: 0 2. Loose toenail Advised keep protected.allow 6 months to grow out. Consider prosthetic dentist if remains painful. 3. Sore throat As above. - POC RAPID STREP A ANTIGEN 4. Pre-diabetes Labs for next visit. - CBC WITH DIFFERENTIAL; Future - MICROALBUMIN/CREATININE RATIO, RANDOM UR; Future - HEMOGLOBIN A1C; Future - TSH REFLEXIVE; Future - URINALYSIS WITH REFLEX MICROSCOPIC; Future - COMPREHENSIVE METABOLIC PANEL; Future - LIPID PANEL; Future 5. Amenorrhea Negative test today. She has SECURED ENTRANCE MONITOR to see if needed. - POC , URINE FOLLOW UP Return in about 3 months (around 10/07/2025). Appropriate medications prescribed and pt instructed in risks , benefits and side effects. Appropriate patient instructions provided . See details in AVS Medications and options explained to include common side effects. Understanding of medications, course, diagnosis, and expectations were expressed by patient/guardian. Pt advised to call my office in one week if not contacted with any ordered test results. SHA Gill 07/09/2025 [facility] AT [address] [address] Some of this encounter may have been transcribed using [employer] [place] Speaking computerized voicerecognition without a human diving instructor. This report may or may not have been adjusted for typographical or medical and syntax errors. LAY FABRICATION SUPERVISOR documented in this encounter Plan of Treatment Upcoming Encounters Date Type Department Care Team (Late st Contact Info) Description 10/01/2025 1:00 PM CDT Clinical Support [place] [address] [place] [address] 10/08/2025 1:00 PM CDT Office Visit [place] [address] [address] Jillian Crow ANP [address] [place] [address] [place] [address] Scheduled Orders Name Type Priority Associated Diagnoses Orde r Schedule CBC WITH DIFFERENTIAL Lab Routine Pre-diabetes Expected: 10/07/2025, Expires: 01/05/2026 MICROALBUMIN/CREATININE RATIO, RANDOM UR Lab Routine Pre-diabetes Expected: 10/07/2025, Expires: 01/05/2026 HEMOGLOBIN A1C Lab Routine Pre-diabetes Expected: 10/07/2025, Expires: 01/05/2026 TSH REFLEXIVE Lab Routine Pre-diabetes Expected: 10/07/2025, Expires: 01/05/2026 URINALYSIS WITH REFLEX MICROSCOPIC Lab Routine Pre-diabetes Expected: 10/07/2025, Expires: 01/05/2026 COMPREHENSIVE METABOLIC PANEL Lab Routine Pre-diabetes Expected: 10/07/2025, Expires: 01/05/2026 LIPID PANEL Lab Routine Pre-diabetes Expected: 10/07/2025, Expires: 01/05/2026 documented as of this encounter Procedures Procedure Name Priority Date/Time Associated Diagnosis Comments POC , URINE Routine 07/09/2025 9:30 AM DISPLAY FABRICATION SUPERVISOR Amenorrhea POC RAPID STREP A ANTIGEN Routine 07/09/2025 9:00 AM DISPLAY FABRICATION SUPERVISOR Sore throat documented in this encounter Results * POC , URINE (07/09/2025 9:30 AM DISPLAY FABRICATION SUPERVISOR) HCG QUAL URINE POC Negative Negative, Indeterminate [facility] [place] POC Pass Pass [facility] [place] LOT NUM[place] POC [id number] [facility] [place] EXP DATE POC 09/21/2026 [facility] [place] Urine 07/09/2025 9:30 AM DISPLAY FABRICATION SUPERVISOR us Jillian DALTON POINT OF CARE TESTING Final Result [facility] CLIA# [id number] [address] [place] [address] * (ABNORMAL) POC RAPID STREP A ANTIGEN (07/09/2025 9:00 AM DISPLAY FABRICATION SUPERVISOR) RAPID STREP POC Positive(A) Negative, Indeterminate [facility] [place] POC Pass Pass [facility] [place] POC [id number] [facility] [place] EX[place] POC 07/11/26 [facility] [place] READ METHOD POC Instrument [facility] [place] Upper Respiratory SPECIMEN FROM THROAT / Unknown 07/09/2025 9:00 AM DISPLAY FABRICATION SUPERVISOR us Jillian Crow ANP POINT OF CARE TESTING Final Result [facility]# [id number] [address] [employer] [address] [address] documented in this encounter Visit Diagnoses Diagnosis Acute streptococcal pharyngitis- Primary Streptococcal sore throat Loose toenail Other specified disease of nail Sore throat Acute pharyngitis Pre-diabetes Other abnormal glucose Amenorrhea Absence of menstruation documented in this encounter Care Teams Valet Runner Relationship Specialty Start Date End Date Noris Diaz MD [address] [place] [address] PCP - General Internal Medicine 01/18/24 documented as of this encounter
--- OUTSIDE RECORDS SUMMARY | 2025-07-09 09:00 | XMS_ITS | Encounter Summary ---
Author Organization [facility] Address [address] [place] [address] Care Team Providers Care Sales Product Manager Name Role Phone Noris Diaz MD Primary Care Provider [phone] Reason for Visit * Reason Comments Sore Throat Patient states she g enerally doesn't feel good, and saw a black spot on her tonsil. Had chest congestion two weeks ago. Feels like has fluid in her ears. Encounter Details Date Type Department Care Team (Late st Contact Info) Description 07/09/2025 9:[address]PER[address] SUPERVISOR Office Visit [facility] at Work [employer] [place] [address] [place] [address] Jillian Crow, [facility] [address] [place] [address] Acute streptococcal pharyngitis (Primary Dx); [...] Comments Blood Pressure 118/72 07/09/2025 8:[address]PER[address] SUPERVISOR Pulse 109 07/09/2025 8:[address] SUPERVISOR Temperature 36.8 C (98.3 F) 07/09/2025 8:[address] SUPERVISOR Respiratory Rate 18 07/09/2025 8:[address] SUPERVISOR Oxygen Saturation 97% 07/09/2025 8:[address] SUPERVISOR Inhaled Oxygen Concentration - - Weight 83.5 kg (184 lb) 07/09/2025 8:[address] SUPERVISOR Height 160 cm (5' 3) 07/09/2025 8:[address] SUPERVISOR Body Mass Index 32.59 07/09/2025 8:[address]PER[address] SUPERVISOR documented in this encounter Progress Notes [...] Turbinates: Swollen. Left Turbinates: Swollen. Mouth/Throat: Lips: [place]. Mouth: Mucous membranes are moist. Pharynx: Uvula [...] protected.allow 6 months to grow out. Consider professor of french if remains painful. 3. Sore throat As above. - POC RAPID STREP A ANTIGEN 4. Pre-diabetes Labs for next visit. - CBC WITH DIFFERENTIAL; Future - MICROALBUMIN/CREATININE RATIO, RANDOM UR; Future - HEMOGLOBIN A1C; Future - TSH REFLEXIVE; Future - URINALYSIS WITH REFLEX MICROSCOPIC; Future - COMPREHENSIVE METABOLIC PANEL; Future - LIPID PANEL; Future 5. Amenorrhea Negative test today. She has SLATE WORKER to see if needed. - POC , [...] any ordered test results. SHA Gill 07/09/2025 [facility] AT [address] [address] Some of this encounter may have been transcribed using [email or web address] Speaking computerized voicerecognition without a human operating room aide. This report may or may not have been adjusted for typographical or medical and syntax errors. R VEHICLE OPERATOR ROAD SUPERVISOR documented in this encounter Plan of Treatment Upcoming Encounters Date Type Department Care Team (Late st Contact Info) Description 10/01/2025 1:00 PM CDT Clinical Support [place] [address] [email or web address] [address] 10/08/2025 1:00 PM CDT Office Visit [place] [address] [place] [address] Jillian Crow ANP [address] [place] [address] [place] [address] Scheduled Orders Name Type Priority [...] POC , URINE Routine 07/09/2025 9:[address] SUPERVISOR Amenorrhea POC RAPID STREP A ANTIGEN Routine 07/09/2025 9:[address] SUPERVISOR Sore throat documented in this encounter Results * POC , URINE (07/09/2025 9:[address] SUPERVISOR) HCG QUAL URINE POC Negative Negative, Indeterminate [facility] [place] POC Pass Pass [facility] [place] LOT NUMBER POC [id number] [facility] [place] EXP DATE POC 09/21/2026 [facility] [place] Urine 07/09/2025 9:[address] SUPERVISOR us Jillian DALTON POINT OF CARE TESTING Final Result [facility] CLIA# [id number] [address] [place] [address] * (ABNORMAL) POC RAPID STREP A ANTIGEN (07/09/2025 9:[address]PER[address] SUPERVISOR) RAPID STREP POC Positive(A) Negative, Indeterminate [facility] [place] INTERNAL KIT QC POC Pass Pass [facility] [place] KIT LOT NUMBER POC [id number] [facility] [place] K[place] EXP DATE POC 07/11/26 [facility] [place] READ METHOD POC Instrument [facility] [place] Upper Respiratory SPECIMEN FROM THROAT / Unknown 07/09/2025 9:[address] SUPERVISOR us Jillian Crow ANP POINT OF CARE TESTING Final Result [facility]# [id number] [address] [email or web address] [address] [address] documented in this encounter Visit Diagnoses Diagnosis Acute streptococcal pharyngitis- Primary Streptococcal sore throat Loose toenail Other specified disease of nail Sore throat Acute pharyngitis Pre-diabetes Other abnormal glucose Amenorrhea Absence of menstruation documented in this encounter Care Teams Sales Product Manager Relationship Specialty Start Date End Date Noris Diaz MD [address] [place] [address] PCP - General Internal Medicine 01/18/24 documented as of this encounter
--- NOTE | ~2025-07-10 | CT_ITS ---
EXAM/PROCEDURE: CT soft tissue neck w con HISTORY: tonsillar abscess r/o COMPARISON: None available. TECHNIQUE: IV contrast-enhanced soft tissue neck CT performed FINDINGS: Bilateral tonsillar engorgement and infiltration, with peripheral enhancing probably complex fluid collection or abscess developing in the right pharyngeal tonsillar region, image 34 series 3, and image 56 series 602. Measurements are approximately 1.8 x 1.4 x1.4 cm in the cephalocaudal by AP by transverse There is enlargement on the left side as well but no peripheral enhancement seen lesion or abscess on the left side. Narrowing of the airway but no critical closure or stenosis. Mild bilateral lymphadenopathy present, right worse than left No other suspicious fluid accumulations or discrete masses. The parapharyngeal, and retropharyngeal spaces appear normal. Fossae of Rosenmuller are symmetric. Vascular structures are patent. Bones appear intact. 5 mm right lobe thyroid nodule. No acute process seen in the visualized portions of the upper chest or intracranial contents. IMPRESSION: 1. Right pharyngeal tonsillar abscess measuring 1.8 x 1.4 x 1.4 cm. Diffuse infiltrative cellulitic appearance for both right and left pharyngeal tonsils. 2. 5 mm right lobe thyroid nodule can be better evaluated with follow-up nonemergent thyroid ultrasound. Reviewed, dictated and finalized at location A. ACCOUNTING ANALYST IMPRESSION: 1. Right pharyngeal tonsillar abscess measuring 1.8 x 1.4 x 1.4 cm. Diffuse inf iltrative cellulitic appearance for both right and left pharyngeal tonsils. 2. 5 mm right lobe thyroid nodule can be better evaluated with follow-up noneme rgent thyroid ultrasound.
[2025-07-10 09:10] VITALS: BP 133/97; PULSE 71; RESP 18; TEMP 37.1; O2SAT 96
--- OUTSIDE RECORDS SUMMARY | 2025-07-10 09:12 | XMS_ITS | Data Portability ---
Author Organization [facility] Address [address] [place] [address] [place] [address] Assessment Encounter Date Assessment Date Assessment LastModified by Organization Details LastModified Time 09/18/2023 09/18/2023 Annual gynecological exam performed. Patient will come back in a year unless there are new symptoms. [email or web address] Not available 09/18/2023 11:32:55 Plan of Treatment Reminders Order Date Submit Date Provider Last Modified By Organization Details Last Modified Time Details Appointments None recorded. Lab test, urine 2023 024 francis [facility], [address], [address], [place], [address], 12:58:05 Referral None recorded. Procedures None recorded. Surgeries None recorded. Imaging US, pelvis 2023 024 shayne [facility], [address], [address], [place], [address], 4 20:41:00 US, transvagina l 2023 024 shayne [facility], [address], [address], [place], [address], 4 20:41:00 US, pelvis, complete 2023 024 EVERETTE [facility], [address], [address], [place], [address], 4 05:01:01 non-stress test 2022 023 [facility], [address], [address], [place], [address], 3 15:52:13 Medication Orders Zafemy 150 mcg-35 mcg/24 hr transdermal patch 2023 024 [id number], [address], [place], [place], [id number], 4 13:01:03 Xulane 150 mcg-35 mcg/24 hr transdermal patch 2022 023 [facility][id number], [address], [place], [place], [id number], 4 13:01:03 Patient TargetsNo targets recorded. Patient InstructionsNo instructions recorded. Reason for Referral None Reported. Results Created Date Observation Date Name Description Value Unit Range Abnormal Flag Note LastModifiedBy Organization Detail LastModifiedTime 09/18/19 24 09/18/2023 IMAGE GUIDE D PAP, REFLE X HPV IF ASCUS ONLY image guided Pap, reflex HPV ASCUS only SEE RESULT S BELOW CASE REPOR T: Cytol ogy Gynec ologi sangita Repor t Case: [id number] 20 Autho ana g Provi pedro: Damien Guzmán MD Colle cted: 09/18 1340 Order ing Locat ion: [place] [facility] Recei greer: 09/19 1009 First Scree n: Strut z, Willi am, CT Rescr een: Dawit Merino , [place] Speci men: Scree reanna Pap - Image d, Cervi x STATE MENT OF ADEQU ACY: Satis facto ry for evalu ation Trans forma tion zone compo nent prese nt FINAL DIAGN OSIS: Negat ella for Intra epith elial Lesio n or Malig sylvia (NIL) . Shift in tata sugge stive of bacte rial vagin osis. Elect christine posada judith d by Dawit Merino , CT on 024 at 4:38 PM ----- ----- ----- ----- ----- ----- ----- ----- ----- ----- ----- ----- ----- ----- ----- ----- ----- ---- COMME NT: This speci men was revie wed by a Cytot echno logis t and/o r Patho logis t (as indic ated in this repor t) after evalu ation using the Thinp rep Imagi ng Syste m. CLINI SANGITA INFOR MATIO N: Menst rual Statu s: LMP (if appli cable ): Clini sangita Histo ry/Pr eviou s Pap: Type of Neopl angy (if appli cable ): Signi fican t Clini sangita Findi ngs: Other Histo ry: Hormo yoandy (if appli cable ): PAP EDUCA DOMINIC L NOTE: The Pap Test is a scree reanna test with an inher ent false negat ella rate. Liqui d-bas ed sampl ing may decre ase, but will not elimi evaristo, false negat ella resul ts. A negat ella resul t does not precl ude the prese nce and/o r devel opmen t of disea se, since the prese nce of abnor mal cells in the sampl e depen ds on the locat ion of the lesio n and sampl ing techn ique. Alaina nued regul ar scree reanna is the best metho d of cance r preve ntion . If repor leonid cytol ogic findi ng do not corre late with physi sangita and/o r histo rical findi ngs, furth er inves tigat ion is recom jeet d, as george flood nted. Not Available [facility] (Lab) [address], [place], [address], 09/24/2023 17:42:24 01/04/20 24 01/04/2024 CT/GC AND TRICH OMONA S VAGIN LEIGHANN (RRNA ), URINE chlamydia trachomatis, PCR Negati ve negati ve Not Available [facility] (Lab) [address] [facility], [place], [address], 01/05/2024 14:40:16 01/04/20 24 01/04/2024 CT/GC AND TRICH OMONA S VAGIN LEIGHANN (RRNA ), URINE neisseria gonorrhoeae, PCR Negati ve negati ve Not Available [facility] (Lab) [address] [facility], [place], [address], 01/05/2024 14:40:16 01/04/20 24 01/04/2024 CT/GC AND TRICH OMONA S VAGIN LEIGHANN (RRNA ), URINE trichomonas vaginalis ribosomal RNA (rrna) Negati ve negati ve Not Available [facility] (Lab) [address] [place], [address], 01/05/2024 14:40:16 01/04/20 24 01/04/2024 pregn margaret test, urine HCG negati ve Not Available [facility] [address], [place], [address], 01/04/2024 12:43:49 01/18/20 23 01/17/2023 non-s tress test No observ ation record ed. [address], [place], [address], 01/17/2023 16:00:15 01/18/20 23 01/17/2023 US, obste tric, bioph ysica l profi le + non-s tress test No observ ation record ed. [facility] [address], [place], [address], 01/17/2023 16:49:46 01/18/20 23 01/17/2023 US, obste tric, bioph ysica l profi le + non-s tress test No observ ation record ed. [address], [place], [address], 01/18/2023 10:17:00 01/18/20 23 01/17/2023 non-s tress test No observ ation record ed. [email or web address] [facility] [address], [place], [address], 01/24/2023 16:57:27 01/25/20 23 01/24/2023 non-s tress test No observ ation record ed. [email or web address] [facility] [address], [place], [address], 01/24/2023 15:38:30 01/25/20 23 01/24/2023 US, obste tric, bioph ysica l profi le + non-s tress test No observ ation record ed. phan [facility] [address], [place], [address], 01/24/2023 17:00:07 01/25/20 23 01/24/2023 US, obste tric, bioph ysica l profi le + non-s tress test No observ ation record ed. [email or web address] [facility] [address], [place], [address], 01/24/2023 21:06:24 02/01/20 23 01/31/2023 non-s tress test No observ ation record ed. [email or web address] [facility] [address], [place], [address], 01/31/2023 15:48:56 02/01/20 23 01/31/2023 US, obste tric, follo w-up No observ ation record ed. [email or web address] [facility] [address], [place], [address], 02/01/2023 11:54:50 02/01/20 23 01/31/2023 non-s tress test No observ ation record ed. [email or web address] [facility] [address], [place], [address], 05/14/2023 15:43:25 02/01/20 23 01/31/2023 US, obste tric, follo w-up No observ ation record ed. [email or web address] [place] [address], [place], [address], 01/31/2023 18:45:11 02/01/20 23 01/31/2023 US, obste tric, bioph ysica l profi le + non-s tress test No observ ation record ed. [email or web address] [address], [place], [address], 01/31/2023 18:45:01 02/08/20 23 02/07/2023 non-s tress test No observ ation record ed. [email or web address] [facility] [address], [place], [address], 02/07/2023 22:10:38 02/08/20 23 02/07/2023 US, obste tric, bioph ysica l profi le + non-s tress test No observ ation record ed. [email or web address] [place] [address], [place], [address], 02/07/2023 17:30:58 02/08/20 23 02/07/2023 US, obste tric, bioph ysica l profi le + non-s tress test No observ ation record ed. [email or web address] [facility] [address], [place], [address], 02/08/2023 10:21:41 02/08/20 23 02/07/2023 US, obste tric, bioph ysica l profi le + non-s tress test No observ ation record ed. [email or web address] [facility] [address], [place], [address], 02/08/2023 10:19:38 02/15/20 23 02/14/2023 non-s tress test No observ ation record ed. [email or web address] [facility] [address], [place], [address], 02/14/2023 15:48:20 02/15/20 23 02/14/2023 US, obste tric, follo w-up No observ ation record ed. [address] [address], [place], [address], 02/15/2023 14:03:19 02/15/20 23 02/15/2023 US, obste tric, follo w-up No observ ation record ed. [email or web address] [facility] [address], [place], [address], 02/15/2023 11:54:08 02/16/20 23 02/07/2023 US, romye tric, bioph ysica l profi le + non-s tress test No observ ation record ed. [email or web address] [facility] [address], [place], [address], 02/16/2023 10:29:28 02/16/20 23 02/07/2023 US, obste tric, bioph ysica l profi le + non-s tress test No observ ation record ed. [email or web address] [facility] [address], [place], [address], 02/16/2023 10:29:57 01/15/20 24 01/15/2024 US, pelvi s No observ ation record ed. [email or web address] [facility] [address], [place], [address], 01/15/2024 13:54:24 01/15/20 24 01/15/2024 US, trans vagin al No observ ation record ed. [facility] [address], [place], [address], 01/15/2024 13:54:36 01/15/20 24 01/15/2024 US, junito s No observ ation record ed. EVERETTE Thomson [address], [place], [address], 03/13/2024 12:18:27 Result Notes None recorded. Problems Name Problem SNOMED Code Status Onset Date Resolution Date Notes Provider Name and Address Organization Details Recorded Time Cramp in lower limb 394955223 [facility] 3 13:04:47 Gestatio nal diabetes mellitus 82858318 Completed Diet Controlle d [facility] 3 13:04:47 Pregnanc y 35945014 Completed 202202/26/2023 [facility] 3 13:04:53 Problem Notes None recorded. Procedures Surgical History Date Name Laterality Status Provider Name and Address Organization Details Recorded Time 09/18/19 24 Date of Last Pap Smear completed [facility] 09/18/2023 11:34:26 07/23/19 18 extraction of wisdom tooth completed [facility] 09/18/2023 11:35:20 07/23/19 07 Appendectomy completed [facility] 10/06/2022 15:17:07 Imaging Results None recorded. Procedure Notes None recorded. Medical Equipment None Reported. Allergies Allergen ID Allergen Name Allergen Category Reaction Reaction Severity Criticality Documentation Date Start Date Code Code System Note Provider Name and Address Organization Details Recorded Time 54491 Latex (substanc e) environme nt,medica tion itching Not available Not available 07/11/2022 20581 8007 SNOMED Nicole Glaser [facility] 10:50:02 Medications Name Sig Start Date Stop Date Status Note LastModified by Organization Details LastModified Time prednisone 10 mg tablet 07/11 completed Not Available Not Available Not Available clindamycin HCl 300 mg capsule 07/11 completed Not Available Not Available Not Available sulfamethox azole 800 mg-trimetho prim 160 mg tablet TAKE 1 TABLET BY MOUTH TWICE DAILY 07/11 completed Not Available Not Available Not Available OneTouch Ultra Test strips 09/18 completed Not Available Not Available Not Available cephalexin 500 mg capsule TAKE 1 CAPSULE BY MOUTH EVERY 12 HOURS FOR 7 DAYS 01/03 completed Not Available Not Available Not Available pantoprazol e 40 mg tablet,zach yed release active Not Available Not Available Not Available triamcinolo ne acetonide 0.025 % topical ointment APPLY TO THE AFFECTED AREA BESIDES FACE DIRECTED active Not Available Not Available No t Available colestipol 1 gram tablet active Not Available Not Available Not Available Vitamin 09/18 completed Not Available Not Available Not Available Cimzia 400 mg/2 mL (200 mg/mL x 2) subcutaneou s syringe kit active Not Available Not Available Not Available Xifaxan 550 mg tablet active Not Available Not Available No t Available Blisovi Fe 08/11 (28) 1 mg-20 mcg (21)/75 mg (7) tablet 07/11 completed Not Available Not Available Not Available Duobrii 0.01 %-0.045 % lotion 01/03 completed Not Available Not Available Not Available OneTouch Ultra2 Meter 09/18 completed Not Available Not Available Not Available OneTouch Delica Plus Lancet 33 gauge 09/18 completed Not Available Not Available Not Available Zafemy 150 mcg-35 mcg/24 hr transdermal patch Apply one patch by transderm al route once weekly 01/03 completed Not Available Not Available Not Available Vitals Date Recorded Body height Body mass index (BMI) Body weight Systolic And Diastolic Provider Name and Address Organization Details Last Updated DateTime 09/18/2023 160.02 cm 35.4 kg/m2 36530.47 g 136/78 mm[Hg] Jasmin Espinosa [facility] 09/18/2023 11:33:31 Date Recorded Body height Body mass index (BMI) Body weight Systolic And Diastolic Provider Name and Address Organization Details Last Updated DateTime 01/04/2024 160.02 cm 34.2 kg/m2 43819.33 g 133/84 mm[Hg] Lesly Rothman [facility] 01/04/2024 12:30:00 Date Recorded Body height Body mass index (BMI) Body weight Systolic And Diastolic Provider Name and Address Organization Details Last Updated DateTime 02/14/2023 160.02 cm 34.9 kg/m2 49760.696 89 g 132/85 mm[Hg] Nicole Glaser [facility] 02/14/2023 16:22:32 Date Recorded Body height Body mass index (BMI) Body weight Systolic And Diastolic Provider Name and Address Organization Details Last Updated DateTime 03/19/2023 160.02 cm 32.1 kg/m2 59639.22 g 123/83 mm[Hg] Nicole Glaser [facility] 03/19/2023 16:01:38 Social History Question Answer Notes LastModified by Organizat ion Details LastModified Time Tobacco Smoking Status Current Every Day Smoker Nicole Glaser [facility] 07/11/2022 10:34:02 Do You Have An Advance Directive? No Information n ot available 07/11/2022 How Many Years Have You Consumed Alcohol? 13 Information not available 07/11/2022 Are You Blind Or Do You Have Difficulty Seeing? Yes Information n ot available 07/11/2022 What Is Your Level Of Caffeine Consumption? None Information not available 07/11/2022 How Much Tobacco Do You Chew? None Information not available 07/11/2022 In The 14 Days Before Symptom Onset, Have You Had Close Contact With A Laboratory-confirm ed COVID-19 While That Case Was Ill? No Information n ot available 07/11/2022 In The 14 Days Before Symptom Onset, Have You Had Close Contact With A Person Who Is Under Investigation For COVID-19 While That Person Was Ill? No Information not available 07/11/2022 Have You Been To An Area Known To Be High Risk For COVID-19? No Information not available 07/11/2022 Are You Deaf Or Do You Have Serious Difficulty Hearing? No Information not available 07/11/2022 What Type Of Diet Are You Following? REGULAR Information n ot available 07/11/2022 What Is The Highest Grade Or Level Of School You Have Completed Or The Highest Degree You Have Received? [id number] Information not available 07/11/2022 Are There Any Guns Present In Your Home? No Information not available 07/11/2022 Do You Use Protection During Sex? Usually Information not available 07/11/2022 Do You Use Your Seat Belt Or Car Seat Routinely? Yes Information not available 07/11/2022 Do You Have Smoke And Carbon Monoxide Detectors In Your Home? Yes Information not available 07/11/2022 At What Age Did You Start Smoking Tobacco? 12 Information not available 07/11/2022 How Much Tobacco Do You Smoke? 1 PPD Information not available 07/11/2022 Do You Use Sunscreen Routinely? Yes Information not available 07/11/2022 Have You Used IV Drugs? No Information not available 07/11/2022 Do You Have Difficulty Walking Or Climbing Stairs? No [email or web address] Information not available 10/06/2022 Sex: Unknown Functional Status Question Answer Note LastModified by Organizat ion Details LastModified Time Do you use any illicit or recreational drugs? Yes Information not available 07/11/2022 What is your level of alcohol consumption? None Information not available 07/11/2022 Are you able to walk independently without assistance or assistive devices? YESWOREST Information not available 07/11/2022 Are you able to care for yourself independently? 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 No [email or web address] Information not available 10/06/2022 What is your exercise level? Moderate [email or web address] Information not available 07/11/2022 Mental Status Question Answer Note LastModified by Organization D etails LastModified Time Do you feel stressed (tense, restless, nervous, or anxious, or unable to sleep at night)? [id number] [email or web address] Information not available 07/11/2022 Family History Relationship Description Onset Age of this Age Resolved Age Notes LastModified by Organization Details LastModified Time Maternal Grandmother Disorder of thyroid gland [email or web address] Not available 2021 10:32:07 Paternal Grandfather Kidney disease [email or web address] Not available 2021 10:32:07 Medical History Condition Response Allergies (Food, seasonal, environmental ) N Other N Breast Cancer N Drug/Latex Allergies/Reactions Y Blood Transfusion N Lung Disease N Dermatologic Disorders N Defects or Inherited Disease N Breast Problem N Gestational Diabetes Y Hematologic disorders N Anesthesia Complications N History of STI Y Deep Vein Thrombosis N Polycystic ovary syndrome N Anxiety Disorder N Autoimmune disease Y Arthritis N Polyps N Infertility N History of abnormal pap N Acid Reflux (GERD) N Cancer N Varicosities N Stroke N Neurologic/Epilepsy N Endometriosis N High Cholesterol N Fibromyalgia N Headaches N Kidney Disease N Heart Problems N Kidney or Bladder Problems N Thyroid Problems N GI Problems N Eating Disorder N Anemia N Art (IVF or FET) N Psychiatric Illness N Ovarian Cancer N Diabetes Y Pulmonary (TB, Asthma) N Hepatitis/Liver Disease N No Past Medical History N Eczema N Urinary Tract Infection N Abuse/Domestic Violence N Asthma N Trauma/Violence N Depression/ depression N Heart Disease N Pre-Eclampsia N Hypertension N Osteoporosis N Thrombophilias N Gynecological History Statement/Question Response Date of Last Mammogram Date of LMP 01/01/2024 N STIs/STDs Y Was last menstrual period normal N Date of Last Colonoscopy Desired Control Method BCPs Abnormal Pap N HPV Vaccine Y Colposcopy Duration of Flow (days) 6 Current Control Method Patch Age at First Child 27 Frequency of Cycle (Q days) 35 Sexually Active? Y Date of DEXA bone scan Age of first menstrual cycle 13 Date of Last Pap Smear 09/18/2023 Sexual Problems? N LMP Approximate N 07/23/2013 Obstetrics History GPAL:G 1 P 1 0 0 1 Type Value Full Term 1 Living 1 Total 1 Past Encounters Encounter ID Performer Location Encounter Start Date Encounter Closed Date Diagnosis/Indication Diagnosis SNOMED-CT Code Diagnosis ICD10 Code Diagnosis IMO Codes Diagnosis Note [id number] Martin Guzmán MD [facility] [address],[place] [address] 07/04/2022 11:41:02 07/04/2022 12:41:25 Uncertain viability of [id number] O36.80X0 Z3A.01 [id number] Martin Guzmán MD [facility] [address],[place] [address] 07/11/2022 10:19:23 07/12/2022 12:32:26 Amenorrhea 49906475 N91.2 this patient is a 26-year-ol d 1 at 6 weeks gestation who presented for positive test and amenorrhea . She had ultrasound revealed a 6 week 4 day gestation. She has no complaints . She was informed about early care. We talked about her medical history. Talked about genetic screening. Talked about precaution s in regarding exercise, medication s, diet. Spent more than 20 minutes face-to-fa ce. More than 50% was counseling . [id number] Martin Guzmán MD [facility] [address],[place] [address] 08/11/2022 15:21:03 08/15/2022 03:50:52 [id number] Martin Guzmán MD [facility] [address],[place] [address] 08/11/2022 15:22:03 08/11/2022 17:18:27 Routine care 759555341 Z34.01 [id number] MD Enrrique Franks [address],[place] [address] 09/08/2022 14:40:23 09/08/2022 16:00:09 [id number] Aby Brooks MD [facility] [address],[place] [address] 09/08/2022 14:41:39 09/08/2022 15:56:53 Routine care 623169652 Z34.02 [id number] Martin Guzmán MD [facility] [address],[place] [address] 10/06/2022 14:02:34 10/06/2022 15:14:05 screening for malformation 995766019 Z36.3 [id number] Vivienne Elizondo [facility] [address],[place] [address] 10/06/2022 14:03:05 10/06/2022 15:38:28 Routine care 765058167 Z34.82 [id number] Martin Guzmán MD [facility] [address],[place] [address] 11/02/2022 13:50:43 11/02/2022 15:15:38 screening 842375126 Z36.2 Z3A.23 [id number] Deana Zarate [facility] [address],[place] [address] 11/02/2022 13:51:52 11/02/2022 15:29:42 [id number] Martin Guzmán MD [facility] [address],[place] [address] 11/30/2022 10:52:08 11/30/2022 13:30:27 Routine care 367493439 Z34.01 [id number] Martin Guzmán MD [facility] [address],[place] [address] 12/13/2022 11:26:41 12/13/2022 12:17:30 Gestational diabetes mellitus class A1 26605989 O24.410 Diet teaching completed over the phone per pt's request. Pt states she typically eats healthy and low carb and has continued since but occasional ly has a Pepsi. Pt states she does not eat fast food and eats low fat, low carb type foods and drinks water. Carb counts for meals and snacks reviewed. Pt instructed on how to read nutritiona l labels and instructed on researchin g carb counts for fresh fruits and vegetables . Pt will be provided with print outs with some fresh food carb counts and online resources were reinforced for checking fresh food serving sizes and carb counts. Pt instructed on blood sugar level goals and importance of checking blood sugar and keeping blood sugar log. Pt instructed on high protein low carb and provided with food recommenda tions. Pt instructed on 2200 calorie ADA diet and importance of regular meals and snacks with controlled carb amounts for a alf stable control of blood sugar. Pt asked about increasing carbs because she does not think she typically eats enough and may have a hard time getting 30 carbs for meals and snacks. Pt instructed to try and eat some carbs and sugars consistent ly so her blood sugar remains stable and informed sometimes limiting carbs too much actually causes an increase in blood sugar. Pt verbalized understand ing. Pt has an appt scheduled with SB for tomorrow to review her BS log and OB will call pt in between her appts. Pt verbalized understand ing of informatio n discussed. Shari Mcdaniels ier, [place] [id number] Martin Guzmán MD [facility] [address],[place] [address] 12/14/2022 14:43:11 12/14/2022 15:53:59 Routine care 674892728 Z34.01 [id number] Martin Guzmán MD [facility] [address],[place] [address] 12/21/2022 17:27:22 12/21/2022 18:35:14 Routine care 284927262 Z34.01 [id number] Martin Guzmán MD [facility] [address],[place] [address] 01/03/2023 14:58:57 01/03/2023 16:14:44 Gestational diabetes mellitus 99399744 O24.410 [id number] Martin Gumzán MD [facility] [address],[place] [address] 01/03/2023 14:59:18 01/03/2023 16:43:26 Gestational diabetes mellitus class A1 64208519 O24.410 Z3A.32 [id number] Martin Guzmán MD [facility] [address],[place] [address] 01/03/2023 14:59:34 01/03/2023 16:56:19 Routine care 681611678 Z34.01 [id number] MD Enrrique Calderon [address],[place] [address] 01/10/2023 16:20:58 01/10/2023 17:11:05 Gestational diabetes mellitus 39165592 O24.410 [id number] MD Enrrique Calderon [address],[place] [address] 01/10/2023 16:21:43 01/10/2023 17:54:21 Gestational diabetes mellitus 66331141 O24.410 Z3A.33 [id number] MD Enrrique Calderon [address],[place] [address] 01/10/2023 16:22:35 01/10/2023 18:11:39 Routine care 708272161 Z34.01 [id number] Martin Guzmán MD [facility] [address],[place] [address] 01/17/2023 14:58:48 01/17/2023 16:06:44 Gestational diabetes mellitus 92644129 O24.410 Z3A.33 [id number] Martin Guzmán MD [facility] [address],[place] [address] 01/17/2023 14:59:11 01/17/2023 16:09:38 Gestational diabetes mellitus [id number] O24.410 Z3A.34 [id number] [facility] [address],[place] [address] 01/17/2023 14:59:48 01/17/2023 16:15:06 [id number] MD Enrrique Calderon [address],[place] [address] 01/24/2023 14:53:41 01/24/2023 15:50:42 Gestational diabetes mellitus [id number] O24.410 Z3A.34 [id number] Martin Guzmán MD [facility] [address],[place] [address] 01/24/2023 14:54:20 01/24/2023 16:50:22 Gestational diabetes mellitus class A1 [id number] O24.410 Z3A.35 [id number] Vivienne Elizondo [facility] [address],[place] [address] 01/24/2023 14:54:40 01/24/2023 17:27:31 Routine care [id number] Z34.82 [id number] Martin Guzmán MD [facility] [address],[place] [address] 01/31/2023 14:59:11 01/31/2023 15:48:38 Gestational diabetes mellitus 68186282 O24.410 Z3A.34 [id number] Martin Guzmán MD [facility] [address],[place] [address] 01/31/2023 14:59:39 02/01/2023 10:34:56 Gestational diabetes mellitus class A1 [id number] O24.410 Z3A.36 [id number] Martin Guzmán MD [facility] [address],[place] [address] 01/31/2023 14:59:59 01/31/2023 17:29:39 Routine care [id number] Z34.01 [id number] MD Enrrique Calderon [address],[place] [address] 02/07/2023 14:46:13 02/07/2023 15:25:35 Gestational diabetes mellitus class A1 [id number] O24.410 Z3A.36 [id number] MD Enrrique Calderon [address],[place] [address] 02/07/2023 14:47:15 02/07/2023 15:59:49 Gestational diabetes mellitus class A1 [id number] O24.410 Z3A.37 [id number] MD Enrrique Calderon [address],[place] [address] 02/07/2023 15:23:35 02/07/2023 23:58:50 [id number] Aby Brooks MD [facility] [address],[place] [address] 02/07/2023 15:52:24 02/07/2023 16:33:41 Gestational diabetes mellitus 86663801 O24.410 [id number] Martin Guzmán MD [facility] [address],[place] [address] 02/14/2023 14:58:37 02/14/2023 15:52:13 Gestational diabetes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
--- OUTSIDE RECORDS SUMMARY | 2025-07-10 09:13 | XMS_ITS | Clinical Summary ---
Author Organization [facility] [employer] [facility] Address [address] [employer] [address] Care Team Providers Care Lathe Operator Name Role Phone Noris Diaz MD Primary Care Provider Allergies Active Allergy Reactions Criticality Noted Date Comments Amoxicillin Rash Low 03/16/2025 Latex Rash Low 12/14/2019 Medications azithromycin (Zithromax Z-Petr) 250 mg tabletIndications :Acute streptococcal pharyngitis Take two pills on day 1, then one pill daily until gone. 6 Tablet 07/09/20 Active azithromycin (Zithromax Z-Petr) 250 mg tablet Take two pills on day 1, then one pill daily until gone. 6 Tablet 03/16/20 25 025 Discontinued(Re order) azithromycin (Zithromax Z-Petr) 250 mg tablet Take two pills on day 1, then one pill daily until gone. 6 Tablet 07/09/20 25 025 Discontinued Active Problems Problem Noted Date Diagnosed Date Pre-diabetes 07/09/2025 History of gestational diabetes 05/25/2023 Encounters Date Type Department Care Team Description 07/09/2025 9:00 AM MAINTENANCE TRAINER Office Visit [facility] [address] [employer] [facility] [place] [address] Jillian Crow ANP Acute streptococcal pharyngitis (Primary Dx); Loose toenail; Sore throat; Pre-diabetes; Amenorrhea 04/21/2025 External Device Data STL ABSTRACTION Provider, Abstract from Last 3 Months Family History Medical History Relation Name Comments Other Father car accident Psoriasis Maternal Grandfather head in jury Dementia Paternal Grandmother Psoriasis Sister Relation Name [...] Comments Blood Pressure 118/72 07/09/2025 8:59 AM MAINTENANCE TRAINER Pulse 109 07/09/2025 8:59 AM MAINTENANCE TRAINER Temperature 36.8 C (98.3 F) 07/09/2025 8:59 AM MAINTENANCE TRAINER Respiratory Rate 18 07/09/2025 8:59 AM MAINTENANCE TRAINER Oxygen Saturation 97% 07/09/2025 8:59 AM MAINTENANCE TRAINER Inhaled Oxygen Concentration - - Weight 83.5 kg (184 lb) 07/09/2025 8:59 AM MAINTENANCE TRAINER Height 160 cm (5' 3) 07/09/2025 8:59 AM MAINTENANCE TRAINER Body Mass Index 32.59 07/09/2025 8:59 AM MAINTENANCE TRAINER Plan of Treatment Upcoming Encounters Date Type Department Care Team (Late st Contact Info) Description 10/01/2025 1:00 PM CDT Clinical Support [facility] [employer] [place] [address] [place] [phone] 10/08/2025 1:00 PM CDT Office Visit [facility] [employer] [place] [address] [place] [address] Jillian Crow, [facility] [address] [place] [address] Health Maintenance Due Date Last Done Comments HEPATITIS B VACCINES (1 of 3 - 19+ 3-dose series) 09/21 CERVICAL CANCER SCREENING 2017 HPV/Cotest (21-29) 2017 PAP SMEAR 2017 INFLUENZA VACCINE (#1) 2025 DTAP/TDAP/TD VACCINES (2 - Td or Tdap) 12/13/2029 HPV VACCINES (No Doses Required) Completed Procedures Procedure Name Priority Date/Time Associated Diagnosis Comments POC , URINE Routine 07/09/2025 9:30 AM MAINTENANCE TRAINER Amenorrhea POC RAPID STREP A ANTIGEN Routine 07/09/2025 9:00 AM MAINTENANCE TRAINER Sore throat from Last 3 Months Results * POC , URINE (07/09/2025 9:30 AM MAINTENANCE TRAINER) HCG QUAL URINE POC Negative Negative, Indeterminate [facility] [place] POC Pass Pass [facility] [place] POC [phone] [facility] [place] EX[place] DATE POC 09/21/2026 [facility] [place] Urine 07/09/2025 9:30 AM MAINTENANCE TRAINER us Jillian Crow ANP POINT OF CARE TESTING Final Result [facility] CLIA# [id number] [address] [id number] * (ABNORMAL) POC RAPID STREP A ANTIGEN (07/09/2025 9:00 AM MAINTENANCE TRAINER) RAPID STREP POC Positive(A) Negative, Indeterminate [facility] [place] POC Pass Pass [facility] [place] POC [phone] [facility] [place] EX[place] POC 07/11/26 [facility] [place] READ METHOD POC Instrument [facility] [place] Upper Respiratory SPECIMEN FROM THROAT / Unknown 07/09/2025 9:00 AM MAINTENANCE TRAINER us Jillian Crow ANP POINT OF CARE TESTING Final Result [facility] CLIA# [id number] [address] [address] from Last 3 Months Insurance * Guarantor: [employer] A THRU D (C) Account Type Relation to Patient Date of Phone Billing Address Corporate Employer ATTN: ABY CHEEK [address] [address] ALLEGIANCE OPEN ACCESS Care Teams Lathe Operator Relationship Specialty Start Date End Date Noris Diaz MD [address] [place] [phone] PCP - General Internal Medicine 01/18/24
--- OUTSIDE RECORDS SUMMARY | 2025-07-10 09:13 | XMS_ITS | Clinical Summary ---
Author Organization [facility] Address [address] [place] [address] Care Team Providers Care Glassware Selector Name Role Phone Elena Glaser MD Unavailable [phone] Laura Sheldon MD Unavailable [phone] Balbina Trevino MD, Ricki [place] Primary Care [...] Date Smoking Tobacco: Every Day Cigarettes 0.5 16 Started: 2009 Smokeless Tobacco: Never Tobacco Cessation:Ready [...] on file Legal Sex Female 11:34 AM JEWELRY SALESPERSON Gender Identity Female 03/22/2020 11:03 AM CDT Sexual Orientation Straight 03/22/2020 11 :03 AM CDT Last Filed Vital Signs Vital Sign Reading Time Taken Comments Blood Pressure 92/58 06/07/2021 2:53 PM JEWELRY SALESPERSON Pulse 105 06/07/2021 2:53 PM JEWELRY SALESPERSON Temperature 36.7 C (98.1 F) 06/07/2021 2:53 PM JEWELRY SALESPERSON Respiratory Rate 16 06/07/2021 2:53 PM JEWELRY SALESPERSON Oxygen Saturation 97% 06/07/2021 2:53 PM JEWELRY SALESPERSON Inhaled Oxygen Concentration - - Weight 76.7 kg (169 lb) 06/07/2021 2:53 PM JEWELRY SALESPERSON Height 160 cm (5' 3) 06/07/2021 2:53 PM JEWELRY SALESPERSON Body Mass Index 29.94 06/07/2021 2:53 PM JEWELRY SALESPERSON Plan of Treatment Not on file Care Teams Glassware Selector Relationship Specialty Start Date End Date Ricki Mortensen Jr., MD [facility] [address] PCP - General Internal Medicine 06/01/21 Elena Glaser MD [address] [address] Referring Physician Obstetrics and Gynecology 6/9/20 Laura Sheldon MD [address] [place] [address] Referring Physician Dermatology 11/18/20
[2025-07-10 09:16] VITALS: O2SAT 97
--- OUTSIDE RECORDS SUMMARY | 2025-07-10 09:43 | XMS_ITS | Clinical Summary ---
Author Organization [facility] [employer] Address [address] [address] Care Team Providers Care Energy Projects Lead Name Role Phone Noris Diaz MD Primary Care Provider [phone] Allergies Active Allergy Reactions Criticality Noted Date [...] Department Care Team Description 07/09/2025 9:00 AM PROFESSOR OF LANGUAGES Office Visit [facility] [employer] [address] [place] [address] Jillian Crow ANP Acute streptococcal [...] Comments Blood Pressure 118/72 07/09/2025 8:59 AM PROFESSOR OF LANGUAGES Pulse 109 07/09/2025 8:59 AM PROFESSOR OF LANGUAGES Temperature 36.8 C (98.3 F) 07/09/2025 8:59 AM PROFESSOR OF LANGUAGES Respiratory Rate 18 07/09/2025 8:59 AM PROFESSOR OF LANGUAGES Oxygen Saturation 97% 07/09/2025 8:59 AM PROFESSOR OF LANGUAGES Inhaled Oxygen Concentration - - Weight 83.5 kg (184 lb) 07/09/2025 8:59 AM PROFESSOR OF LANGUAGES Height 160 cm (5' 3) 07/09/2025 8:59 AM PROFESSOR OF LANGUAGES Body Mass Index 32.59 07/09/2025 8:59 AM PROFESSOR OF LANGUAGES Plan of Treatment Upcoming Encounters Date Type Department Care Team (Late st Contact Info) Description 10/01/2025 1:00 PM CDT Clinical Support [facility] [employer] [place] [address] [place] [phone] 10/08/2025 1:00 PM CDT Office Visit [facility] [employer] [place] [address] [place] [address] Jillian Crow, [facility] [address] [place] [address] Health Maintenance Due Date Last Done Comments HEPATITIS B VACCINES (1 of 3 - 19+ 3-dose series) 09/21 CERVICAL CANCER SCREENING 2017 HPV/Cotest (21-29) 2017 PAP SMEAR 2017 INFLUENZA VACCINE (#1) 2025 DTAP/TDAP/TD VACCINES (2 - Td or Tdap) 12/13/2029 HPV VACCINES (No Doses Required) Completed Procedures Procedure Name Priority Date/Time Associated Diagnosis Comments POC , URINE Routine 07/09/2025 9:30 AM PROFESSOR OF LANGUAGES Amenorrhea POC RAPID STREP A ANTIGEN Routine 07/09/2025 9:00 AM PROFESSOR OF LANGUAGES Sore throat from Last 3 Months Results * POC , URINE (07/09/2025 9:30 AM PROFESSOR OF LANGUAGES) HCG QUAL URINE POC Negative Negative, Indeterminate [facility] [place] POC Pass Pass [facility] [place] POC [phone] [facility] [place] EX[place] POC 09/21/2026 [facility] [place] Urine 07/09/2025 9:30 AM PROFESSOR OF LANGUAGES us Jillian Crow ANP POINT OF CARE TESTING Final Result [facility] CLIA# [id number] [address] [id number] * (ABNORMAL) POC RAPID STREP A ANTIGEN (07/09/2025 9:00 AM PROFESSOR OF LANGUAGES) RAPID STREP POC Positive(A) Negative, Indeterminate [facility] [place] POC Pass Pass [facility] [place] POC [phone] [facility] [place] EXP DATE POC 07/11/26 [facility] [place] READ METHOD POC Instrument [facility] [place] Upper Respiratory SPECIMEN FROM THROAT / Unknown 07/09/2025 9:00 AM PROFESSOR OF LANGUAGES us Jillian Crow ANP POINT OF CARE TESTING Final Result [facility] CLIA# [id number] [address] [address] from Last 3 Months Insurance * Guarantor: [employer] A THRU D (C) Account Type Relation to Patient Date of Phone Billing Address Corporate Employer ATTN: AB[employer] [address] [address] [employer]GIANCE OPEN ACCESS Care Teams Energy Projects Lead Relationship Specialty Start Date End Date Noris Diaz MD [address] [place] [phone] PCP - General Internal Medicine 01/18/24
--- OUTSIDE RECORDS SUMMARY | 2025-07-10 09:44 | XMS_ITS | Clinical Summary ---
Author Organization [facility] Address [address] [place] [address] Care Team Providers Care Assembly Line Brazer Name Role Phone Elena Glaser MD Unavailable [phone] Laura Sheldon MD Unavailable [phone] Balbina Trevino MD, Ricki [place] Primary Care [...] on file Legal Sex Female 11:34 AM POPULATION HEALTH COACH Gender Identity Female 03/22/2020 11:03 AM CDT Sexual Orientation Straight 03/22/2020 11 :03 AM CDT Last Filed Vital Signs Vital Sign Reading Time Taken Comments Blood Pressure 92/58 06/07/2021 2:53 PM POPULATION HEALTH COACH Pulse 105 06/07/2021 2:53 PM POPULATION HEALTH COACH Temperature 36.7 C (98.1 F) 06/07/2021 2:53 PM POPULATION HEALTH COACH Respiratory Rate 16 06/07/2021 2:53 PM POPULATION HEALTH COACH Oxygen Saturation 97% 06/07/2021 2:53 PM POPULATION HEALTH COACH Inhaled Oxygen Concentration - - Weight 76.7 kg (169 lb) 06/07/2021 2:53 PM POPULATION HEALTH COACH Height 160 cm (5' 3) 06/07/2021 2:53 PM POPULATION HEALTH COACH Body Mass Index 29.94 06/07/2021 2:53 PM POPULATION HEALTH COACH Plan of Treatment Not on file Care Teams Assembly Line Brazer Relationship Specialty Start Date End Date Ricki Mortensen Jr., MD [facility] [address] [address] PCP - General Internal Medicine 06/01/21 Elena [place] MD [address] [address] Referring Physician Obstetrics and Gynecology 6/9/20 Laura Sheldon MD [address] [place] [address] Referring Physician Dermatology 11/18/20
--- NOTE | 2025-07-10 09:59 | ED_ITS ---
HPI - General Adult General Chief complaint: Upper Respiratory Infection Stated complaint: Sore throat, dx of strep yest Time Seen by Provider: 07/10/25 09:09 History of Present Illness HPI narrative: Aby Guerrero is a 29-year-old female who presents today with reports of being diagnosed with strep infection yesterday was started on azithromycin because she is allergic to penicillins. She states that she took her 1st dose yesterday and a dose today but now feeling worse increased swelling more difficult to swallow and increased pain. She states she went to her PCP and says she was sent here for imgaing to r/o abscess. Related Data Home Medications ?Medication ?Instructions ?Recorded ?Confirmed ?Last Taken ?Type risankizumab-rzaa 150 mg/mL mg subcut .3 mos 04/15/25 07/10/25 03/26/25 History subcutaneous pen injector (Skyrizi) Allergies Allergy/AdvReac Type Severity Reaction Status Date / Time amoxicillin Allergy Mild hives Verified 07/10/25 14:10 Latex, Natural Rubber Allergy Itching Verified 07/10/25 14:10 Review of Systems 2 Review of Systems: All systems reviewed & are unremarkable except as noted in HPI and below PMFSH Surgical History Surgical History History of appendectomy 2007 - open appendectomy Family History Family History Mother Cervical cancer Grandparent Diabetes mellitus Cancer Heart disease Cerebrovascular accident Social History Social History Smoking status: Current every day smoker Tobacco type: cigarettes Alcohol intake: former Substance use: never Lack of Transportation: No Lack of Food: Never True Current Housing: I Have Housing Concerned About Future Housing: No Difficulty Paying Gas/Electric Bills: No Difficulty Paying for Meds: No Currently Unemployed: No Education: High School Diploma/GED Difficulty w/ Childcare or Family Care: No Occupation/Education: occupation 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 HEAD: Normocephalic, atraumatic. EYES: PERRLA and EOMI. ENT: Nares clear, no rhinorrhea or epistaxis. Mucous membranes moist. Oropharynx with tonsillar hypertrophy +2 non touching, airway is well patent, Positive exudate to bilateral tonsils. Bilateral TMs pearly ayers non bulging NECK: Supple. No adenopathy or masses. No carotid bruits or JVD CHEST: Clear to auscultation. No respiratory distress. No wheezes rales or rhonchi HEART: Regular rate and rhythm. No murmur heard. Normal peripheral pulses. EXTREMITIES: Normal range of motion. No edema. SKIN: Warm, dry, no rash. NEURO: No focal deficits. Alert and oriented x3. PSYCH: Normal mood and affect. Course Vital Signs Vital signs: Vital Signs Temperature 37.1 C 07/10/25 09:10 Pulse Rate 71 07/10/25 09:10 Respiratory Rate 18 07/10/25 09:10 Blood Pressure 133/97 H 07/10/25 09:10 Pulse Oximetry 96 07/10/25 09:10 Oxygen Delivery Room Air 07/10/25 09:10 Temperature 37.1 C 07/10/25 09:10 Pulse Rate 71 07/10/25 09:10 Respiratory Rate 18 07/10/25 09:10 Blood Pressure 133/97 H 07/10/25 09:10 Pulse Oximetry 97 07/10/25 09:16 Oxygen Delivery Room Air 07/10/25 09:16 MDM MDM Narrative Medical decision making narrative: 21-year-old with worsening pain and swelling of her tonsils after being diagnosed with strep yesterday and started on antibiotics yesterday. On exam she is noted to have positive erythemic tonsils with exudate bilateral with mild tonsillar edema +to not touching airway patent. tonsils appear to be equally swollen concern for : tonsillar abscess/ strep pharyngitis/ plan to check basic labs, CT of neck soft tissue while treating her with IV ketorolac and Dexamethasone pending results CBC leukocytosis 2.4, hemodynamically stable CMP-sodium 134, chloride 95, creatinine 0.61, AST 222, ALT 222 which are have typically been elevated in previous lab work has been done here. negative CT scan 1. Right pharyngeal tonsillar abscess measuring 1.8 x 1.4 x 1.4 cm. Diffuse infiltrative cellulitic appearance for both right and left pharyngeal tonsils. 2. 5 mm right lobe thyroid nodule can be better evaluated with follow-up nonemergent thyroid ultrasound. Based on the CT results consult flu with ENT Dr. Sims who recommends switching her antibiotics from azithromycin that she was started on yesterday to clindamycin 300 t.i.d. and have her call his office today and he will see her in his clinic for possible I&D. Patient was given her 1st dose of clindamycin while she was here prescription sent to the pharmacy. She was also updated on the finding of her thyroid nodule and encouraged to follow up outpatient through primary for a ultrasound of that. She is given the phone number to call as she is leaving here to make an appointment for this afternoon with Dr. Sims for possible I and D of her abscess and to continue the clindamycin and stop the azithromycin. Patient is agreeable to this plan denies anything further at this time and actually says that she is feeling little bit better after getting the medications we gave her here. Differential Diagnosis Differential Diagnosis: Tonsillar abscess, strep pharyngitis, mono Medical Records I have reviewed the following patient records and this information was taken into consideration when formulating the assessment and plan.: previous labs and previous ER visits Lab Data MDM Lab Attestation statement: I personally reviewed the patient's lab results. 07/10/25 10:00 07/10/25 10:00 Labs: Lab Results 07/10/25 07/10/25 Range/Units 09:39 10:00 WBC 10.4 H (4.5-10.0) K/mm3 RBC 4.25 (4.2-5.4) M/mm3 Hgb 14.6 (12.0-15.0) g/dL Hct 42.7 (37.0-47.0) % MCV 100.5 H (80-100) fl MCH 34.4 H (26-34) pg MCHC 34.2 (32-36) g/dl RDW 15.3 H (11.5-14.5) % Plt Count 167 (150-375) k/mm3 MPV 10.7 H (7.4-10.4) fl Immature Gran % (Auto) 0.6 H (0-0.5) % Neut % (Auto) 80.9 H (45.5-73.1) % Lymph % (Auto) 9.5 L (18.3-44.2) % Maverick % (Auto) 8.4 (2.6-8.5) % Eos % (Auto) 0.1 (0-4.4) % Baso % (Auto) 0.5 (0.2-1.2) % Lymph # (Auto) 0.99 (0.9-3.2) K/mm3 Maverick # (Auto) 0.9 H (0.1-0.6) K/mm3 Eos # (Auto) 0.0 (0-0.3) K/mm3 Baso # (Auto) 0.1 (0.0-0.1) K/mm3 Abs Immat Gran (auto) 0.06 H (0.00-0.031) K/mm3 Absolute Neuts (auto) 8.5 H (1.3-6.7) K/mm3 Absolute Nucleated RBC 0.000 (0.0-0.012) K/mm3 Nucleated RBC % 0.0 (0.0-0.2) % Sodium 134 L (137-145) mmol/L Potassium 3.5 (3.4-5.0) mmol/L Chloride 95 L (98-107) mmol/L Carbon Dioxide 28 (22-30) mmol/L Anion Gap 11 (4-12) mmol/L BUN 11 D (7-17) mg/dL Creatinine 0.61 L (0.7-1.0) mg/dL Estim Creat Clear Calc 120 ml/min Estimated GFR > 60 (59 - ) Glucose 98 (65-110) mg/dL Calcium 9.2 (8.4-10.2) mg/dL Total Bilirubin 1.0 (0.2-1.3) mg/dL AST 222 H (14-36) U/L ALT 222 H (6-35) U/L Alkaline Phosphatase 101 (38-126) U/L Total Protein 8.3 H (6.3-8.2) g/dL Albumin 4.6 (3.5-5.1) g/dL POC Urine HCG, Qual Negative (Negative) Imaging Data Radiologist's impression: ITS Impressions Soft Tissue Neck CT 07/10/25 10:49 IMPRESSION: 1. Right pharyngeal tonsillar abscess measuring 1.8 x 1.4 x 1.4 cm. Diffuse infiltrative cellulitic appearance for both right and left pharyngeal tonsils. 2. 5 mm right lobe thyroid nodule can be better evaluated with follow-up nonemergent thyroid ultrasound. Discharge Plan Discharge Clinical Impression: Tonsillar abscess Patient Disposition: Home Condition: Stable Instructions: Antibiotic Form, Tonsillitis (ED) Additional Instructions: Continue the Clindamycin three times a day for 10 days Start the Steroid pack tomorrow since you did receive steroids here today Please call now, when you leave to see what time your appt is with ENT Dr. Sims TODAY Call [phone] If you develop any new or worsening symptoms return to the ER Patient Language: Swedish Prescriptions: New methylprednisolone 4 mg tablets,dose pack See Rx Instructions .ROUTE .COMPLEX Qty: 21 0RF Rx Instructions: for 6 days No Action clindamycin HCl [Cleocin HCl] 300 mg capsule 300 mg PO QID 10 Days Qty: 40 0RF Skyrizi 150 mg/mL pen injector SUBCUT .3 mos Follow-up/Referrals: Colin Sims MD [Physician, Ear, Nose, Throat] - 07/10/25 11:42 am PHYSICIAN NOT ON STAFF,NONSTAFF [Primary Care Provider] Stand Alone Forms: Work/School Release IP Time of Disposition: 11:41
[2025-07-10] MEDS: KETOROLAC 30 MG/ML VIAL (*BKC) 15 MG IV PUSH (10:01)
[2025-07-10] MEDS: dexAMETHasone SOD PHOS INJ 10 MG/ML 1 ML VIAL IV PUSH (10:02)
[2025-07-10 10:07] LABS: BEDSIDEPREGUCG Negative (Negative)
[2025-07-10 10:11] LABS: Hematocrit 42.7 % (37.0-47.0); Hemoglobin 14.6 g/dL (12.0-15.0); Immature Granulocyte Percent A 0.6 % (0-0.5); Lymphocytes Absolute Auto 0.99 K/mm3 (0.9-3.2); Mean Corpuscular HGB Conc 34.2 g/dl (32-36); Mean Corpuscular Hemoglobin 34.4 pg (26-34); Mean Corpuscular Volume 100.5 fl (80-100); Nucleated Red Blood Cells Absolute Auto 0.000 K/mm3 (0.0-0.012); Nucleated Red Blood Cells Perc 0.0 % (0.0-0.2); Platelet Count Result 167 k/mm3 (150-375); Red Blood Count 4.25 M/mm3 (4.2-5.4); White Blood Count 10.4 K/mm3 (4.5-10.0)
[2025-07-10 10:31] LABS: Alanine Aminotransferase 222 U/L (6-35); Albumin Level 4.6 g/dL (3.5-5.1); Alkaline Phosphatase 101 U/L (38-126); Anion Gap 11 mmol/L (4-12); Aspartate Amino Transferase 222 U/L (14-36); Bilirubin,Total 1.0 mg/dL (0.2-1.3); Blood Urea Nitrogen 11 mg/dL (7-17); Calcium 9.2 mg/dL (8.4-10.2); Carbon Dioxide 28 mmol/L (22-30); Chloride 95 mmol/L (98-107); Estimated CRCL calculation 120 ml/min; Estimated Glomerular Filt Rate > 60; Glucose 98 mg/dL (65-110); Potassium 3.5 mmol/L (3.4-5.0); Sodium 134 mmol/L (137-145); Total Protein 8.3 g/dL (6.3-8.2)
[2025-07-10] MEDS: CLINDAMYCIN HCL 150 MG CAP 300 MG PO (11:47)
== END 2025-07-10 11:54 | disposition home or self-care (01) ==
PROVIDERS: Emergency Provider Nurse Practitioner Family
DX: J36 Peritonsillar abscess (principal); F17.210 Nicotine dependence, cigarettes, uncomplicated
CPT/HCPCS: 36415; 70491; 80053; 81025; 85025; 96374; 96375; 99284; J1100; J1885; Q9967